=== PATIENT | female | born 1965 | race Caucasian/White ===

== ENCOUNTER 2019-04-27 07:54 | Outpatient (CLI) | payer OTHER, SELFPAY ==
--- NOTE | ~2019-04-27 | MM_ITS ---
EXAMINATION: MM screening [facility] BI w wilber HISTORY: Screening mammogram TECHNIQUE: Craniocaudal and mediolateral oblique 3-D tomosynthesis images were obtained and synthetic 2-D images were generated. CAD analysis was submitted and interpreted. COMPARISON: Comparison to multiple prior studies sequentially, with oldest reviewed study dated 03/04. BREAST PARENCHYMAL COMPOSITION: There are scattered areas of fibroglandular density. FINDINGS: There is no evidence of suspicious mass, calcification, or architectural distortion to sugg est malignancy in either breast. There has been no suspicious interval change. IMPRESSION: 1. No mammographic evidence of malignancy. 2. Recommend routine screening mammography in one year. BI-RADS Category 1: Negative Reviewed, dictated and finalized at location A.
== END 2019-04-27 07:55 | disposition home or self-care (01) ==
PROVIDERS: PCP Family Medicine Adolescent Medicine; Visit Provider Family Medicine Adolescent Medicine
DX: Z12.31 Encounter for screening mammogram for malignant neoplasm of breast (principal)
CPT/HCPCS: 77063; 77067

== ENCOUNTER 2020-04-28 07:32 | Outpatient (CLI) | payer OTHER, SELFPAY ==
--- NOTE | ~2020-04-28 | MM_ITS ---
EXAMINATION: MM screening [facility] w wil[facility] HISTORY: Screening TECHNIQUE: Craniocaudal and mediolateral oblique 3-D tomosynthesis images were obtained and synthetic 2-D images were generated. CAD analysis was submitted and interpreted. COMPARISON: Comparison to multiple prior studies sequentially, with oldest reviewed study dated 03/11. BREAST PARENCHYMAL COMPOSITION: There are scattered areas of fibroglandular density. FINDINGS: There is no evidence of suspicious mass, calcification, or architectural distortion to sugg est malignancy in either breast. There has been no suspicious interval change. IMPRESSION: 1. No mammographic evidence of malignancy. 2. Recommend routine screening mammography in one year. BI-RADS Category 1: Negative Reviewed, dictated and finalized at location A.
== END 2020-04-28 07:33 | disposition home or self-care (01) ==
LOC: ANHIMG 07:35
PROVIDERS: PCP Family Medicine Adolescent Medicine; Visit Provider Family Medicine Adolescent Medicine
DX: Z12.31 Encounter for screening mammogram for malignant neoplasm of breast (principal)
CPT/HCPCS: 77063; 77067

== ENCOUNTER 2021-01-13 09:45 | Emergency (ER) | payer OTHER, SELFPAY ==
[2021-01-13 09:59] VITALS: BP 147/107; PULSE 95; RESP 16; TEMP 38.3; O2SAT 98
--- NOTE | 2021-01-13 10:24 | ED.URI ---
HPI - URI/Sore Throat General Chief Complaint: Upper Respiratory Infection Stated Complaint: chills/body aches Time Seen by Provider: 01/13/21 10:25 Source: patient Mode of arrival: ambulatory Limitations: no limitations History of Present Illness HPI Narrative: Sonja Adams is a 55-year-old female with no prior medical history who comes to [facility] with complaints of body aches chills and fever last night of 103 she states that her back is hurting and that she has had a slight cough. She has not had Covid vaccine, she has not had a flu vaccine, she does not smoke, she does not drink. Took Tylenol still has back pain Related Data Home Medications Medication Instructions Recorded Confirmed Varophen (diclofenac) 01/13/21 Allergies Allergy/AdvReac Type Severity Reaction Status Date / Time No Known Allergies Allergy NONE Verified 03/03/19 10:31 Review of Systems Review of Systems: CONSTITUTIONAL: Has fever, chills, sweats. EYES: Denies visual changes, redness, discharge. ENT: Denies rhinorrhea, has congestion, sore throat, otalgia. CARDIOVASCULAR: Denies chest pain, palpitations, edema. RESPIRATORY: Denies dyspnea, wheezing, slight cough GASTROINTESTINAL: Denies abdominal pain, nausea, vomiting, diarrhea. GENITOURINARY: Denies dysuria, hematuria, abnormal discharge SKIN: Denies rash or itching. NEUROLOGIC: Denies numbness, or focal weakness. PSYCHIATRIC: Denies anxiety or depression. Complaining of back pain and mild PMFSH Past Medical History Medical History No acute medical problems Family History Family History Mother Diabetes mellitus Social History Social History Smoking status: Never smoker Substance use: never Gender identity (if verbalized by the patient): Female Comments At time of signature, I agree with nursing past medical, surgical, social and family history. There is no relevant family history pertinent to the presenting complaint. Blood pressure elevated here today which patient believes is due to her being ill and will follow up with her primary care physician Exam Narrative: GENERAL: This is a well-nourished, well-developed patient, in moderate distress. HEAD: normocephalic, atraumatic. EYES: Sclera clear/white. Vision is grossly intact. EARS: External ears normal. Hearing grossly intact. NOSE: External nose normal without nasal discharge, nares with redness, has rhinorrhea. THROAT: Mucous membranes moist, posterior pharynx erythema NECK: Neck supple, non-tender CARDIOVASCULAR: Tachycardic rate and rhythm without murmurs, gallops, or rubs. RESPIRATORY: Coarse to auscultation. Breath sounds equal bilaterally. Mild wheezes, rales, or rhonchi. GASTROINTESTINAL: Abdomen soft, SKIN: warm, intact with no suspicious lesions or rash, good texture and turgor. NEURO: awake, alert, and oriented to person, place and time. There were no obvious focal neurologic abnormalities. Steady gait EXTREMITIES: Normal range of motion. BACK: Nontender without deformity Course Course Emergency Course: Pubic patient here with with fever body aches chills started yesterday Flu test was negative-given Toradol IM Started on ibuprofen 800, muscle relaxant, decongestant Vital Signs Vital signs: Vital Signs Temperature 100.9 F H 01/13/21 09:59 Pulse Rate 95 01/13/21 09:59 Respiratory Rate 16 01/13/21 09:59 Blood Pressure 147/107 H 01/13/21 09:59 Pulse Oximetry 98 01/13/21 09:59 Temperature 100.9 F H 01/13/21 09:59 Pulse Rate 95 01/13/21 09:59 Respiratory Rate 16 01/13/21 09:59 Blood Pressure 147/107 H 01/13/21 09:59 Pulse Oximetry 98 01/13/21 09:59 MDM - URI/Sore Throat Differential Diagnosis Differential diagnosis: Likely upper respiratory infection, sinusitis, viral infection, influenza, pharyn
--- NOTE | 2021-01-13 11:03 | PC.NURSE ---
[address] covid pcr order faxed.
--- NOTE | 2021-01-13 18:47 | PC.NURSE ---
order was canceled for toradol by security guard supervisor.
== END 2021-01-13 10:52 | disposition home or self-care (01) ==
PROVIDERS: Emergency Provider Nurse Practitioner; PCP Family Medicine Adolescent Medicine
DX: J06.9 Acute upper respiratory infection, unspecified (principal)
CPT/HCPCS: 87804; 99213; G0463

== ENCOUNTER → 2021-01-15 08:32 | Outpatient (CLI) | payer OTHER, SELFPAY ==
[2021-01-15 19:12] LABS: SARS-CoV-2 RNA PCR Positive
== END ==
PROVIDERS: PCP Family Medicine Adolescent Medicine; Visit Provider Nurse Practitioner
DX: U07.1 COVID-19 (principal)
CPT/HCPCS: C9803; U0003; U0005

== ENCOUNTER 2021-02-16 09:17 | Emergency (ER) | payer OTHER, SELFPAY ==
--- NOTE | 2021-02-16 09:18 | ED.LOWEXIN ---
HPI - Extremity Injury (Lower) General Chief Complaint: Extremity Injury, Lower Stated Complaint: left knee pain Time Seen by Provider: 02/16/21 09:32 Source: patient, RN notes reviewed and old records reviewed Mode of arrival: ambulatory Limitations: no limitations History of Present Illness HPI Narrative: 55-year-old female presents to the [facility] with complaints of left knee pain. Patient has a history of arthritis in her knees. States knee pain became worse yesterday. States that Dr. Santos did gel injections approximately 1 week ago Has taken Tylenol and her diclofenac tablet. Related Data Home Medications Medication Instructions Recorded Confirmed diclofenac sodium 25 mg PO BID 02/16/21 02/16/21 Allergies Allergy/AdvReac Type Severity Reaction Status Date / Time No Known Allergies Allergy NONE Verified 02/16/21 09:40 Review of Systems Review of Systems: All systems reviewed & are unremarkable except as noted in HPI and below Constitutional: Constitutional: Reports no additional constitutional complaints Eyes: Eyes: Reports no additional eye complaints ENT: Reports system reviewed and no additional complaints, except as documented Cardiovascular: Cardiovascular: Reports no additional cardiovascular complaints Respiratory: Respiratory: Reports no additional respiratory complaints Gastrointestinal: Gastrointestinal: Reports no additional gastrointestinal complaints Musculoskeletal: Musculoskeletal: Reports as per HPI, Reports arthralgias (Left knee) and Reports joint swelling (Left knee) Integumentary/Breasts: Skin/Breast: Reports system reviewed and no additional complaints, except as docu Neurologic: Reports system reviewed and no additional complaints, except as documented Psychiatric: Psychiatric: Reports no additional psychiatric complaints Allergic/Immunologic: Allergic/Immunologic: Reports no additional allergic/immunologic complaints [facility] Past Medical History Medical History (Updated 02/16/21 @ 09:47 by Georgie Campuzano) No acute medical problems Osteoarthritis, knee Surgical History Surgical History (Updated 02/16/21 @ 09:19 by Georgie Campuzano) No significant past surgical history Family History Family History Mother Diabetes mellitus Social History Social History Smoking status: Never smoker Substance use: never Gender identity (if verbalized by the patient): Female Comments At the time of my signature, I reviewed and agree with the nursing past medical, surgical, social, and family history. There is no relevant family history pertinent to the patient complaint. Exam Const: General: healthy appearing, no acute distress and alert Nutritional Appearance: well nourished Orientation/consciousness: patient oriented x3 Limitations: no limitations HENMT: Head: normal to inspection Eyes: Pupils: Equal, round and reactive pupils present Neck: Neck: normal visual inspection, no lymphadenopathy and no meningeal signs Chest: Chest palpation & inspection: normal inspection of the chest Resp: Effort & Inspection: normal respiratory effort Auscultation: clear to auscultation bilaterally Cardio: Rate: regular rate Rhythm: regular rhythm Back/Spine/Pelvis: Back: no CVA tenderness Skin: General skin exam: normal color Rashes: no rashes Wounds: no wounds Neuro: General: patient oriented x3, moves all extremities, no meningeal signs and no focal motor deficits Speech: normal speech Gait exam (Neuro): Normal gait present Extrem: General: full ROM, capillary refill normal and normal exam except as noted Left lower extremity: normal capillary refill and knee (No erythema or signs of infection) Details: tenderness Location: of the tibial tuberosity and of the medial joint line and swelling (Generalized) Psych: Appearance: grossly normal and well kempt Mental Status
[2021-02-16 09:20] VITALS: BP 154/97; PULSE 100; RESP 17; TEMP 37.2; O2SAT 100
== END 2021-02-16 09:50 | disposition home or self-care (01) ==
PROVIDERS: Emergency Provider Nurse Practitioner; PCP Family Medicine Adolescent Medicine
DX: M25.462 Effusion, left knee (principal); M17.12 Unilateral primary osteoarthritis, left knee
CPT/HCPCS: 99213; G0463

== ENCOUNTER 2021-05-25 08:36 | Outpatient (CLI) | payer OTHER, SELFPAY ==
--- NOTE | ~2021-05-25 | MM_ITS ---
EXAMINATION: MM screening [facility] BI w wilber HISTORY: Screening TECHNIQUE: Craniocaudal and mediolateral oblique 3-D tomosynthesis images were obtained and synthetic 2-D images were generated. CAD analysis was submitted and interpreted. COMPARISON: Comparison to multiple prior studies sequentially, with oldest reviewed study dated 10/2017. BREAST PARENCHYMAL COMPOSITION: There are scattered areas of fibroglandular density. FINDINGS: There is no evidence of suspicious mass, calcification, or architectural distortion to sugg est malignancy in either breast. There has been no suspicious interval change. IMPRESSION: 1. No mammographic evidence of malignancy. 2. Recommend routine screening mammography in one year. BI-RADS Category 1: Negative Reviewed, dictated and finalized at location A.
== END 2021-05-25 08:37 | disposition home or self-care (01) ==
LOC: ANHIMG 08:37
PROVIDERS: PCP Family Medicine Adolescent Medicine; Visit Provider Family Medicine Adolescent Medicine
DX: Z12.31 Encounter for screening mammogram for malignant neoplasm of breast (principal)
CPT/HCPCS: 77063; 77067

== ENCOUNTER 2021-07-27 08:04 | Outpatient (CLI) | payer OTHER, SELFPAY ==
[2021-07-27 08:45] LABS: Hematocrit 44.1 % (37.0-47.0); Hemoglobin 14.6 g/dL (12.0-15.0); Immature Platelet Fraction Pct 8.8 % (0.9-11.2); Mean Corpuscular HGB Conc 33.1 g/dl (32-36); Mean Corpuscular Hemoglobin 31.2 pg (26-34); Mean Corpuscular Volume 94.2 fl (80-100); Mean Platelet Volume 11.6 fl (7.4-10.4); Platelet Count Result 148 k/mm3 (150-375); Red Blood Count 4.68 M/mm3 (4.2-5.4); Red Cell Distribution Width 12.3 % (11.5-14.5); White Blood Count 4.5 K/mm3 (4.5-10.0)
[2021-07-27 08:53] LABS: Alanine Aminotransferase 40 U/L (6-35); Albumin Level 4.3 g/dL (3.5-5.1); Alkaline Phosphatase 76 U/L (38-126); Anion Gap 7 mmol/L (8-16); Aspartate Amino Transferase 27 U/L (14-36); Bilirubin,Total 0.7 mg/dL (0.2-1.3); Blood Urea Nitrogen 23 mg/dL (7-17); Carbon Dioxide 25 mmol/L (22-30); Chloride 108 mmol/L (98-107); Cholesterol 228 mg/dL (0-200); Estimated Glomerular Filt Rate > 60; Glucose 88 mg/dL (65-110); HDL Direct 45 mg/dL; Potassium 4.1 mmol/L (3.4-5.0); Sodium 140 mmol/L (137-145); Triglycerides 134 mg/dL (<150)
[2021-07-27 09:04] LABS: LDL Cholesterol Direct 123 mg/dL
== END 2021-07-27 08:05 | disposition home or self-care (01) ==
LOC: ANHLAB 08:06
PROVIDERS: PCP Family Medicine Adolescent Medicine; Visit Provider Physician Assistant
DX: M79.645 Pain in left finger(s) (principal); R53.83 Other fatigue; Z13.220 Encounter for screening for lipoid disorders
CPT/HCPCS: 36415; 80053; 80061; 84443; 84550; 85027; 85055

== ENCOUNTER 2021-09-07 05:00 | Emergency (ER) | payer OTHER, SELFPAY ==
--- NOTE | ~2021-09-07 | CT_ITS ---
EXAMINATION: CT abdomen pelvis wo con DATE: 09/07/2021 06:05 INDICATION: Right flank pain. TECHNIQUE: Computed tomography (CT) of the abdomen and pelvis was performed without intravenous contr ast. Automated exposure control and iterative reconstruction technique were employed. The dose-length product was 1127.45 mGy-cm. COMPARISON: 10/21/05 FINDINGS: Lung bases are clear. Heart size is normal. No pericardial or pleural effusion. Diffuse hepatic steat osis with adjacent focal fat and focal fatty sparing along the gallbladder fossa. Gallbladder, spleen , pancreas and right adrenal gland are normal. 2.6 cm low-attenuation left adrenal adenoma. Bilateral nephrolithiasis with 3 mm stone in an upper pole calyx of the left kidney and 1 mm stones in the mid and lower calyces of the right kidney. There is a 2-3 mm stone at the right ureterovesicular junctio n without hydronephrosis or hydroureter. 8 mm left renal cyst. Multiple diverticula predominantly navin ng the descending and sigmoid colon without adjacent inflammatory stranding to suggest diverticulitis . Small bowel and appendix are normal. The uterus is not identified and has likely been surgically re sected. Decompressed bladder and bilateral adnexa are normal. No free intraperitoneal gas or fluid. N o pathologically enlarged abdominal or pelvic lymphadenopathy. Minimal scattered degenerative skeleta l changes. IMPRESSION: 1. Bilateral nephrolithiasis with 2-3 mm nonobstructing stone at the right ureterovesicular junction. Reviewed, dictated and finalized at location A. IMPRESSION: 1. Bilateral nephrolithiasis with 2-3 mm nonobstructing stone at the right uret erovesicular junction.
[2021-09-07 05:05] VITALS: BP 168/107; PULSE 70; RESP 18; TEMP 36.4; O2SAT 98
[2021-09-07 05:30] LABS: Basophils Absolute Auto 0.1 K/mm3 (0.0-0.1); Basophils Percent Auto 0.9 % (0.2-1.2); Eosinophils Absolute Auto 0.1 K/mm3 (0-0.3); Hematocrit 45.1 % (37.0-47.0); Hemoglobin 14.7 g/dL (12.0-15.0); Immature Granulocyte Absolute 0.01 K/mm3 (0.00-0.031); Immature Granulocyte Percent A 0.2 % (0-0.5); Immature Platelet Fraction Pct 10.3 % (0.9-11.2); Lymphocytes Absolute Auto 1.92 K/mm3 (0.9-3.2); Lymphocytes Percent Auto 34.8 % (18.3-44.2); Mean Corpuscular HGB Conc 32.6 g/dl (32-36); Mean Corpuscular Hemoglobin 30.6 pg (26-34); Mean Platelet Volume 11.9 fl (7.4-10.4); Monocytes Absolute Auto 0.5 K/mm3 (0.1-0.6); Monocytes Percent Auto 8.3 % (2.6-8.5); Neutrophils Percent Auto 53.8 % (45.5-73.1); Platelet Count Result 148 k/mm3 (150-375); Red Cell Distribution Width 12.6 % (11.5-14.5); White Blood Count 5.5 K/mm3 (4.5-10.0)
--- NOTE | 2021-09-07 05:32 | PC.NURSE ---
Pt states she is unable to urinate at this time
[2021-09-07] MEDS: MORPHINE SULFATE (*CRX) 4 MG/ML INJ IV PUSH (05:34)
[2021-09-07] MEDS: ONDANSETRON INJ 4 MG/2 ML VIAL IV PUSH (05:34)
[2021-09-07 05:47] LABS: Alanine Aminotransferase 34 U/L (6-35); Albumin Level 4.4 g/dL (3.5-5.1); Alkaline Phosphatase 75 U/L (38-126); Anion Gap 9 mmol/L (8-16); Aspartate Amino Transferase 26 U/L (14-36); Bilirubin,Total 0.5 mg/dL (0.2-1.3); Blood Urea Nitrogen 21 mg/dL (7-17); Calcium 9.1 mg/dL (8.4-10.2); Carbon Dioxide 26 mmol/L (22-30); Chloride 109 mmol/L (98-107); Estimated CRCL calculation 93 ml/min; Estimated Glomerular Filt Rate > 60; Glucose 97 mg/dL (65-110); Potassium 4.2 mmol/L (3.4-5.0); Sodium 144 mmol/L (137-145)
[2021-09-07 05:55] LABS: Appearance Urine Clear (Clear); Bilirubin Urine Negative (Negative); Blood Urine 3+ (Negative); Color Urine Yellow (Yellow); Glucose Urine UA Negative (Negative); Ketones Urine Negative (Negative); Leukocyte Esterase Ur Trace LEU/UL (Negative); Nitrate Urine Negative (Negative); Protein Urine Trace mg/dL (Negative); Specific Grav Ur 1.025 (1.001-1.035); Urobilinogen Urine 0.2 mg/dL (<2.0)
[2021-09-07 06:08] LABS: Mucus Urine Few /lpf; RBC Urine >75 /hpf (0-2); Squamous Epithelial Cell Urine Occasional /hpf (Few); WBC Urine 0-3 /hpf
[2021-09-07 06:09] LABS: Add Urine Microscopic? YES
--- NOTE | 2021-09-07 06:27 | ED.FEMALEGU ---
HPI - Female Genitourinary General Chief complaint: Urogenital-Female Stated complaint: right flank pain Time Seen by Provider: 09/07/21 05:28 History of Present Illness HPI Narrative: 55-year-old female presenting with right flank pain, she had had some right flank pain for the last 2 days but last night she had sudden severe pain in her right flank that woke her out of sleep, she states it feels like her kidney stone, she states she has generally been able to pass it on her own but this was hurting more than usual, states that she has been dribbling and denies any burning with urination. Does not feel like her usual UTI. Related Data Allergies Allergy/AdvReac Type Severity Reaction Status Date / Time No Known Allergies Allergy NONE Verified 09/07/21 05:32 Review of Systems Review of Systems: CONST: No fever. HEENT: No sore throat C/V: No chest pain RESP: No cough GI: Minimal nausea and abdominal pain : Increased frequency and dribbling M/S: Right flank pain SKIN: No rash. NEURO: [No headache or focal numbness or weakness] PSYCH: [No depression] [facility] Past Medical History Medical History (Updated 09/07/21 @ 07:51 by Georgina Alamo MD) History of torn meniscus of left knee Nephrolithiasis Osteoarthritis, knee Surgical History Surgical History History of partial hysterectomy Family History Family History Mother Diabetes mellitus Social History Social History Smoking status: Never smoker Second hand tobacco smoke exposure: No Alcohol intake: current Alcohol use details: Socially Substance use: never Substance use type: does not use Gender identity (if verbalized by the patient): Female Spiritual care concerns: No Agree to blood products: Yes Exam Narrative: EXAMINATION OF ORGAN SYSTEMS/BODY AREAS: Constitutional: Vital signs per nursing GENERAL: Appears quite uncomfortable in bed HEAD: Normal with no signs of head trauma. EYES: EOMI, conjunctiva normal ENT: Hearing grossly intact LUNGS: Nonlabored breathing. HEART: [Regular rate and rhythm] ABD: [Soft], no abdominal tenderness, there is right CVA tenderness EXT: Normal range of motion SKIN: [No rashes or lesions.] NEURO: [Alert and oriented x 3. No gross focal sensory or strength deficits.] PSYCH: Normal affect Course Vital Signs Vital signs: Vital Signs Temperature 97.6 F 09/07/21 05:05 Pulse Rate 70 09/07/21 05:05 Respiratory Rate 18 09/07/21 05:05 Blood Pressure 168/107 H 09/07/21 05:05 Pulse Oximetry 98 09/07/21 05:05 Oxygen Delivery Room Air 09/07/21 05:05 Temperature 97.6 F 09/07/21 05:05 Pulse Rate 63 09/07/21 07:13 Respiratory Rate 18 09/07/21 05:05 Blood Pressure 166/100 H 09/07/21 07:13 Pulse Oximetry 100 09/07/21 07:13 Oxygen Delivery Room Air 09/07/21 05:05 MDM - Female Genitourinary MDM Narrative Medical decision making narrative: ED COURSE AND MEDICAL DECISION MAKIN-year-old female presenting to the emergency department for acute flank pain, symptoms are concerning for likely renal colic versus pyelonephritis. Urinalysis is ordered. [morphine 4mg, Zofran 4mg] are ordered. CT scan of the abdomen/pelvis is ordered. Labs are remarkable for: RBC in urine without signs of UTI CT scan of the abdomen/pelvis is reviewed by myself and interpreted by radiology: 2mm UVJ stone On reevaluation, the patient much more comfortable and able to void. Would like to go home. Patient is strongly advised to return to the emergency department for any increasing pain not improving with medications, persistent nausea vomiting, fevers or chills or for any other concerns. Patient is comfortable with this plan and was discharged in fair condition. Procedures: Pulse oximetry interpretation - not hypoxic. Review of medical records. Lab
[2021-09-07 07:13] VITALS: BP 166/100; PULSE 63; O2SAT 100
[2021-09-07 08:07] VITALS: RESP 16; O2SAT 97
== END 2021-09-07 08:09 | disposition home or self-care (01) ==
PROVIDERS: Emergency Provider Emergency Medicine; PCP Family Medicine Adolescent Medicine
DX: N20.2 Calculus of kidney with calculus of ureter (principal); M17.10 Unilateral primary osteoarthritis, unspecified knee; Z87.442 Personal history of urinary calculi; Z90.711 Acquired absence of uterus with remaining cervical stump
CPT/HCPCS: 36415; 74176; 80053; 81001; 85025; 85055; 96374; 96375; 99284; J2270; J2405

== ENCOUNTER 2021-10-03 17:20 | Emergency (ER) | payer OTHER, SELFPAY ==
--- NOTE | ~2021-10-03 | CT_ITS ---
EXAMINATION: CT abdomen pelvis wo con DATE: 10/03/2021 18:28 INDICATION: kidney stone?? TECHNIQUE: Computed tomography (CT) of the abdomen and pelvis was performed without intravenous contr ast. Automated exposure control and iterative reconstruction technique were employed. The dose-length product was 871.71 mGy-cm. COMPARISON: 09/07/2021. FINDINGS: Lower thorax: Hiatal hernia. Liver: Normal. Biliary/Gallbladder: No bile duct dilation. Pancreas: No mass or duct dilation. Spleen: Normal. Adrenals:Left adrenal adenoma. Kidneys: Mild left hydronephrosis. Left lower pole cyst. Punctate right nonobstructive calculi. No thornton spicious renal mass. GI tract: No small or large bowel dilation. Normal appendix. Diverticulosis without diverticulitis. Mesentery/Peritoneum: No ascites, mass, or free air. Retroperitoneum: No mass. Pelvis: Bladder is decompressed. Absent uterus. 4 mm distal left ureteral stone. Soft Tissues: Soft tissues and body wall unremarkable. Bones: No acute osseous finding. IMPRESSION: 4 mm distal left ureteral stone causing mild obstructive uropathy. Reviewed, dictated and finalized at location K.
[2021-10-03 17:27] VITALS: BP 188/96; PULSE 77; RESP 20; TEMP 36.5; O2SAT 100
[2021-10-03 17:40] LABS: Appearance Urine Clear (Clear); Bilirubin Urine Negative (Negative); Blood Urine 2+ (Negative); Color Urine Yellow (Yellow); Glucose Urine UA Negative (Negative); Ketones Urine Negative (Negative); Leukocyte Esterase Ur Trace LEU/UL (Negative); Nitrate Urine Negative (Negative); Protein Urine Negative (Negative); Urobilinogen Urine 0.2 mg/dL (<2.0); pH Urine 8.5 (5.0-9.0)
[2021-10-03 17:41] LABS: Basophils Absolute Auto 0.1 K/mm3 (0.0-0.1); Basophils Percent Auto 0.6 % (0.2-1.2); Eosinophils Absolute Auto 0.1 K/mm3 (0-0.3); Eosinophils Percent Auto 1.1 % (0-4.4); Hematocrit 44.4 % (37.0-47.0); Hemoglobin 14.8 g/dL (12.0-15.0); Immature Granulocyte Absolute 0.01 K/mm3 (0.00-0.031); Immature Granulocyte Percent A 0.1 % (0-0.5); Immature Platelet Fraction Pct 9.4 % (0.9-11.2); Lymphocytes Absolute Auto 2.56 K/mm3 (0.9-3.2); Lymphocytes Percent Auto 30.8 % (18.3-44.2); Mean Corpuscular HGB Conc 33.3 g/dl (32-36); Mean Corpuscular Hemoglobin 31.8 pg (26-34); Mean Corpuscular Volume 95.3 fl (80-100); Mean Platelet Volume 11.6 fl (7.4-10.4); Monocytes Absolute Auto 0.5 K/mm3 (0.1-0.6); Monocytes Percent Auto 6.3 % (2.6-8.5); Neutrophils Absolute Auto 5.1 K/mm3 (1.3-6.7); Neutrophils Percent Auto 61.1 % (45.5-73.1); Platelet Count Result 148 k/mm3 (150-375); Red Blood Count 4.66 M/mm3 (4.2-5.4); Red Cell Distribution Width 12.8 % (11.5-14.5); White Blood Count 8.3 K/mm3 (4.5-10.0)
[2021-10-03 17:50] LABS: Alanine Aminotransferase 37 U/L (6-35); Albumin Level 4.8 g/dL (3.5-5.1); Alkaline Phosphatase 80 U/L (38-126); Anion Gap 13 mmol/L (8-16); Aspartate Amino Transferase 26 U/L (14-36); Bilirubin,Total 0.5 mg/dL (0.2-1.3); Blood Urea Nitrogen 22 mg/dL (7-17); Calcium 9.8 mg/dL (8.4-10.2); Carbon Dioxide 24 mmol/L (22-30); Chloride 105 mmol/L (98-107); Estimated CRCL calculation 83 ml/min; Estimated Glomerular Filt Rate > 60; Glucose 88 mg/dL (65-110); Potassium 4.1 mmol/L (3.4-5.0); Sodium 142 mmol/L (137-145)
[2021-10-03 17:55] LABS: Mucus Urine Rare /lpf; RBC Urine 21-50 /hpf (0-2); Squamous Epithelial Cell Urine Occasional /hpf (Few)
[2021-10-03 17:56] LABS: Add Urine Microscopic? YES
[2021-10-03 18:42] VITALS: BP 232/89; PULSE 68; RESP 16; O2SAT 100
--- NOTE | 2021-10-03 19:07 | ED.FEMALEGU ---
HPI - Female Genitourinary General Chief complaint: Urogenital-Female Stated complaint: Kidney Stone Time Seen by Provider: 10/03/21 19:06 Source: patient Mode of arrival: ambulatory Limitations: no limitations History of Present Illness HPI Narrative: 55 years old white female presents with left flank pain that started 1-1/2-hour prior to arrival to the emergency room associated with nausea. History of kidney stone. She denies any fever, chills, or vomiting. Related Data Allergies Allergy/AdvReac Type Severity Reaction Status Date / Time No Known Allergies Allergy NONE Verified 10/03/21 19:14 Review of Systems Review of Systems: All systems reviewed & are unremarkable except as noted in HPI and below PMFSH Past Medical History Medical History History of torn meniscus of left knee Nephrolithiasis Osteoarthritis, knee Surgical History Surgical History History of partial hysterectomy Family History Family History Mother Diabetes mellitus Social History Social History Smoking status: Never smoker Second hand tobacco smoke exposure: No Alcohol intake: current Alcohol use details: Socially Substance use: never Substance use type: does not use Gender identity (if verbalized by the patient): Female Spiritual care concerns: No Agree to blood products: Yes Exam Narrative: General appearance: Well-developed, well-nourished Skin: Normal color Head: Normocephalic, nontraumatic Eyes: Clear conjunctiva ENT: Oropharynx normal, ears normal, nose normal Neck: Supple, nontender Chest and respiratory: Airway patent, no respiratory distress, no accessory muscle use Heart: Regular rate/rhythm Abdomen: Soft, mild tenderness left flank, no organomegaly, quiet bowel sounds Vascular: Normal peripheral pulses, normal capillary refill. 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, no gross motor deficit Course Vital Signs Vital signs: Vital Signs Temperature 36.5 C 10/03/21 17:27 Pulse Rate 77 10/03/21 17:27 Respiratory Rate 20 10/03/21 17:27 Blood Pressure 188/96 H 10/03/21 17:27 Pulse Oximetry 100 10/03/21 17:27 Oxygen Delivery Room Air 10/03/21 17:27 Temperature 36.5 C 10/03/21 17:27 Pulse Rate 68 10/03/21 18:42 Respiratory Rate 16 10/03/21 18:42 Blood Pressure 232/89 H 10/03/21 18:42 Pulse Oximetry 100 10/03/21 18:42 Oxygen Delivery Room Air 10/03/21 17:27 MDM - Female Genitourinary Differential Diagnosis Differential diagnosis: Likely urinary tract infection and other (Kidney stone) Lab Data Result diagrams: 10/03/21 17:33 10/03/21 17:33 Labs: Lab Results 10/03/21 10/03/21 10/03/21 Range/Units 17:33 17:33 17:33 WBC 8.3 (4.5-10.0) K/mm3 RBC 4.66 (4.2-5.4) M/mm3 Hgb 14.8 (12.0-15.0) g/dL Hct 44.4 (37.0-47.0) % MCV 95.3 (80-100) fl MCH 31.8 (26-34) pg MCHC 33.3 (32-36) g/dl RDW 12.8 (11.5-14.5) % Plt Count 148 L (150-375) k/mm3 MPV 11.6 H (7.4-10.4) fl Immature Gran % (Auto) 0.1 (0-0.5) % Neut % (Auto) 61.1 (45.5-73.1) % Lymph % (Auto) 30.8 (18.3-44.2) % [place] % (Auto) 6.3 (2.6-8.5) % Eos % (Auto) 1.1 (0-4.4) % Baso % (Auto) 0.6 (0.2-1.2) % Lymph # (Auto) 2.56 (0.9-3.2) K/mm3 [place] # (Auto) 0.5 (0.1-0.6) K/mm3 Eos # (Auto) 0.1 (0-0.3) K/mm3 Baso # (Auto) 0.1 (0.0-
[2021-10-03] MEDS: HYDROmorphone HCL INJ (*CRX) 1 MG/ML SYR 0.5 MG IV PUSH (19:44)
[2021-10-03] MEDS: ONDANSETRON INJ 4 MG/2 ML VIAL IV PUSH (19:44)
[2021-10-03] MEDS: TAMSULOSIN HCL 0.4 MG CAPSULE PO (19:44)
[2021-10-03] MEDS: SODIUM CHLORIDE 0.9% IV 1,000 ML 999 ML IV CONT (19:44)
[2021-10-03 20:26] VITALS: BP 188/86; PULSE 66; RESP 16; O2SAT 100
== END 2021-10-03 20:27 | disposition home or self-care (01) ==
PROVIDERS: Emergency Provider Emergency Medicine; PCP Family Medicine Adolescent Medicine
DX: N13.9 Obstructive and reflux uropathy, unspecified (principal); N20.1 Calculus of ureter; Z87.442 Personal history of urinary calculi; M17.10 Unilateral primary osteoarthritis, unspecified knee
CPT/HCPCS: 36415; 74176; 80053; 81001; 85025; 85055; 87077; 87086; 87088; 96361; 96374; 96375; 99284; A9270; J1170; J2405; J7030

== ENCOUNTER 2021-10-04 02:21 | Emergency (ER) | payer OTHER, SELFPAY ==
[2021-10-04 02:27] VITALS: BP 171/103; PULSE 76; RESP 18; TEMP 36.5; O2SAT 100
--- NOTE | 2021-10-04 03:00 | ED.GENADULT ---
HPI - General Adult General Chief complaint: Abdominal Pain Stated complaint: kidney stone pain Time Seen by Provider: 10/04/21 02:36 History of Present Illness HPI narrative: This is a 55-year-old female who was diagnosed earlier today with a kidney stone. She was discharged home for trial of outpatient therapy. She was not able to fill her pain medications at the pharmacy was closed. She has taken 1 [place] from a friend which is not providing enough relief. She has not tried Motrin or Tylenol. Patient is looking for pain relief to get her through the night so she can fill her prescriptions in the morning. Related Data Allergies Allergy/AdvReac Type Severity Reaction Status Date / Time No Known Allergies Allergy NONE Verified 10/03/21 19:14 Review of Systems Review of Systems: CONSTITUTIONAL: Denies night sweats. EYES: No eye pain ENT: Denies rhinorrhea CARDIOVASCULAR: Denies palpitations RESPIRATORY: Denies hemoptysis GASTROINTESTINAL: Denies hematemesis GENITOURINARY: Denies hematuria. SKIN: Denies rash MUSCULOSKELETAL: Denies myalgia. NEUROLOGIC: Denies weakness. PSYCHIATRIC: Denies delusions [facility] Past Medical History Medical History History of torn meniscus of left knee Nephrolithiasis Osteoarthritis, knee Surgical History Surgical History History of partial hysterectomy Family History Family History Mother Diabetes mellitus Social History Social History Smoking status: Never smoker Second hand tobacco smoke exposure: No Alcohol intake: current Alcohol use details: Socially Substance use: never Substance use type: does not use Gender identity (if verbalized by the patient): Female Spiritual care concerns: No Agree to blood products: Yes Exam Narrative: APPEARANCE: Patient appears uncomfortable Head atraumatic. EYES: PERRLA/EOMI, NOSE: Normal no drainage NECK: Supple, Trachea midline RESPIRATORY: CTAB, No increased work of breathing. CARDIOVASCULAR: S1S2 appreciated ABDOMINAL: Soft, nontender, nondistended, MUSCULOSKELETAl: No obvious deformities NEURO: Alert. Moving 4/4 extremities SKIN:: Warm, dry. Normal color PSYCHIATRIC: Normal affect Course Vital Signs Vital signs: Vital Signs Temperature 97.7 F 10/04/21 02:27 Pulse Rate 76 10/04/21 02:27 Respiratory Rate 18 10/04/21 02:27 Blood Pressure 171/103 H 10/04/21 02:27 Pulse Oximetry 100 10/04/21 02:27 Oxygen Delivery Room Air 10/04/21 02:27 Temperature 97.7 F 10/04/21 02:27 Pulse Rate 76 10/04/21 02:27 Respiratory Rate 18 10/04/21 02:27 Blood Pressure 171/103 H 10/04/21 02:27 Pulse Oximetry 100 10/04/21 02:27 Oxygen Delivery Room Air 10/04/21 02:27 Medical Decision Making MDM Narrative Medical decision making narrative: This a 55-year-old female who was discharged earlier today kidney stones. She was not able to fill her prescriptions at the pharmacy. was given pain meds here in the emergency department. Her pain was controlled. She will be discharged home to get her medications in the morning. Vital Signs Vital Signs: Vital Signs Temperature 97.7 F 10/04/21 02:27 Pulse Rate 76 10/04/21 02:27 Respiratory Rate 18 10/04/21 02:27 Blood Pressure 171/103 H 10/04/21 02:27 Pulse Oximetry 100 10/04/21 02:27 Oxygen Delivery Room Air 10/04/21 02:27 Temperature 97.7 F 10/04/21 02:27 Pulse Rate 76 10/04/21 02:27 Respiratory Rate 18 10/04/21 02:27 Blood Pressure 171/103 H 10/04/21 02:27 Pulse Oximetry 100 10/04/21 02:27 Oxygen Delivery Room Air 10/04/21 02:27 Discharge Plan Discharge Clinical Impression: Kidney stone Patient Disposition: Home, Self-Care Condition: Stable Instructions: Antib
[2021-10-04] MEDS: KETOROLAC 30 MG/ML VIAL (*BKC) IM (03:15)
[2021-10-04] MEDS: HYDROcodone/acetaminophen (*CRX) 5-325 MG TABLET 2 TAB PO (03:16)
== END 2021-10-04 03:50 | disposition home or self-care (01) ==
PROVIDERS: Emergency Provider Emergency Medicine; PCP Family Medicine Adolescent Medicine
DX: N20.0 Calculus of kidney (principal); Z87.442 Personal history of urinary calculi; M17.10 Unilateral primary osteoarthritis, unspecified knee; Z90.711 Acquired absence of uterus with remaining cervical stump
CPT/HCPCS: 96372; 99283; A9270; J1885

== ENCOUNTER 2022-01-22 16:42 | Outpatient (CLI) | payer OTHER, SELFPAY ==
--- NOTE | ~2022-01-22 | XR_ITS ---
Left elbow Technique: AP, oblique, and lateral views were obtained. Clinical History: Pain Findings: No acute fracture or dislocation is seen. Osseous alignment is anatomic. Joint spaces are p reserved. There is no displacement of the fat pads, and no evidence of joint effusion. Probable mild subcutaneous soft tissue edema over the extensor aspect of the proximal forearm. Impression: No osseous or articular abnormality. Probable mild subcutaneous soft tissue edema over the extensor aspect of the proximal forearm. Reviewed, dictated and finalized at location [] GANIC CHEMIST Impression: No osseous or articular abnormality. Probable mild subcutaneous soft tissue edema over the extensor aspect of the pr oximal forearm.
== END 2022-01-22 16:43 | disposition home or self-care (01) ==
LOC: ANHIMG 16:47
PROVIDERS: PCP Family Medicine Adolescent Medicine; Visit Provider Physician Assistant
DX: M25.522 Pain in left elbow (principal)
CPT/HCPCS: 73080

== ENCOUNTER 2022-07-16 18:10 | Emergency (ER) | payer OTHER, SELFPAY ==
[2022-07-16 18:19] VITALS: BP 147/98; PULSE 101; RESP 18; TEMP 36.5; O2SAT 99
--- NOTE | 2022-07-16 18:47 | ED.GENADULT ---
HPI - General Adult General Chief complaint: Extremity Injury, Lower Stated complaint: bleeding to right leg Time Seen by Provider: 07/16/22 18:36 History of Present Illness HPI narrative: 56-year-old female presented to the emergency department for evaluation of a bleeding wound to her right lower leg. Patient states he did have a wound on her leg a few days ago and did scratch at it. Patient states that she was getting out of the shower and pressure with a towel and started bleeding again. Related Data Allergies Allergy/AdvReac Type Severity Reaction Status Date / Time No Known Allergies Allergy NONE Verified 07/16/22 18:38 Review of Systems Review of Systems: All systems reviewed & are unremarkable except as noted in HPI and below PMFSH Past Medical History Medical History History of torn meniscus of left knee Nephrolithiasis Osteoarthritis, knee Surgical History Surgical History History of partial hysterectomy Family History Family History Mother Diabetes mellitus Social History Social History Smoking status: Never smoker Second hand tobacco smoke exposure: No Alcohol intake: current Alcohol use details: Socially Substance use: never Substance use type: does not use Living arrangements: alone Occupation/Education: occupation Gender identity (if verbalized by the patient): Female Spiritual care concerns: No Agree to blood products: Yes Exam Narrative: APPEARANCE: Well appearing, no pain, no distress, well-nourished. HEAD: normocephalic, atraumatic. EYES: PERRLA/EOMI, conjunctivae clear. NOSE: Normal no drainage NECK: Supple. No adenopathy, no masses. RESPIRATORY: Airway patent, respirations nonlabored. Clear to auscultation bilaterally, no rales, rhonchi, wheezing. CARDIOVASCULAR: Regular rate and rhythm without murmurs rubs or gallops. ABDOMINAL: Soft, nontender, nondistended, normal bowel sounds MUSCULOSKELETAL: Moves all extremities. Strength/ROM intact, No edema, No calf tenderness. NEURO: Alert. Cranial nerves II through XII intact. Good gait. Good coordination SKIN: Briskly bleeding punctate wound right lower extremity Course Course Emergency Course: 48-year-old female presented the ED for evaluation of a leg wound. Leg wound was under and directed with lidocaine with epi and sutured with a [id number] suture. Bleeding was controlled. Dressing was applied and patient was encouraged to have close follow-up with her primary care physician in 5 to 7 days to have the sutures removed. All questions concerns were addressed and patient was well-appearing at time of discharge. Vital Signs Vital signs: Vital Signs Temperature 97.7 F 07/16/22 18:19 Pulse Rate 101 H 07/16/22 18:19 Respiratory Rate 18 07/16/22 18:19 Blood Pressure 147/98 H 07/16/22 18:19 Pulse Oximetry 99 07/16/22 18:19 Temperature 97.7 F 07/16/22 18:19 Pulse Rate 80 07/16/22 19:52 Respiratory Rate 16 07/16/22 19:52 Blood Pressure 147/98 H 07/16/22 18:19 Pulse Oximetry 100 07/16/22 19:52 Procedures Laceration Laceration 1: Time: 19:36 Site: lower extremity Side (If applicable): right Size (cm): 0.5 Description: other (Punctate) Local Anesthetic: lidocaine 1% and with epi Amount of anesthesia used (mL): 4 Pre-repair: wound explored ====== Skin Level ====== Size (cm): other (1 [id number] suture) Number of sutures: 1 ====== Subcutaneous Layer ====== ====== Muscle Layer ====== ====== Tendon Layer ====== Medical Decision Making Vital Signs Vital Signs: Vital Signs Temperature 97.7 F 07/16/22 18:19 Pulse Rate 101 H 07/16/22 18:19
--- NOTE | 2022-07-16 19:08 | PC.NURSE ---
Patient report given to DIPTI Lucero. All questions answered and care of patient transferred.
[2022-07-16] MEDS: LIDO 1%/EPINEPHRINE 1:100,000 20 ML VIAL 10 ML INFILTRATE (19:14)
[2022-07-16] MEDS: CELLULOSE OXIDIZED 2 x 3 INCH 1 PKT XX (19:47)
[2022-07-16 19:52] VITALS: PULSE 80; RESP 16; O2SAT 100
== END 2022-07-16 19:53 | disposition home or self-care (01) ==
PROVIDERS: Emergency Provider Emergency Medicine; PCP Family Medicine Adolescent Medicine
DX: I83.891 Varicose veins of right lower extremity with other complications (principal); M17.9 Osteoarthritis of knee, unspecified; Z87.442 Personal history of urinary calculi
CPT/HCPCS: 12001; 99283

== ENCOUNTER 2022-07-23 08:15 | Outpatient (CLI) | payer OTHER, SELFPAY ==
--- NOTE | ~2022-07-23 | MM_ITS ---
EXAMINATION: MM screening adriana BI w wilber HISTORY: Screening mammogram TECHNIQUE: Craniocaudal and mediolateral oblique 3-D tomosynthesis images were obtained and synthetic 2-D images were generated. CAD analysis was submitted and interpreted. COMPARISON: May 25, 2021, April 28, 2020, April 27, 2019 bilateral screening mammogram examinations BREAST PARENCHYMAL COMPOSITION: There are scattered areas of fibroglandular density. FINDINGS: There is no evidence of suspicious mass, calcification, or architectural distortion to sugg est malignancy in either breast. There has been no suspicious interval change. IMPRESSION: 1. No mammographic evidence of malignancy. 2. Recommend routine screening mammography in one year. BI-RADS Category 1: Negative Reviewed, dictated and finalized at location A.
== END 2022-07-23 08:16 | disposition home or self-care (01) ==
PROVIDERS: PCP Family Medicine Adolescent Medicine; Visit Provider Family Medicine Adolescent Medicine
DX: Z12.31 Encounter for screening mammogram for malignant neoplasm of breast (principal)
CPT/HCPCS: 77063; 77067

== ENCOUNTER 2022-08-05 08:00 | Outpatient (CLI) | payer OTHER, SELFPAY ==
--- NOTE | 2022-08-05 09:00 | ECG_ITS ---
Measurements Intervals [place] Rate: 65 P: 37 IA: 176 QRS: 12 QRSD: 87 T: 29 QT: 422 QTc: 441 Interpretive Statements SINUS RHYTHM NORMAL ECG NO PREVIOUS ECG AVAILABLE FOR COMPARISON Electronically Signed On 08-05-2022 10:42:05 CDT by Aleks Sharma M.D.
[2022-08-05 10:35] LABS: Basophils Percent Auto 0.8 % (0.2-1.2); Eosinophils Absolute Auto 0.1 K/mm3 (0-0.3); Eosinophils Percent Auto 2.2 % (0-4.4); Hematocrit 44.9 % (37.0-47.0); Hemoglobin 14.1 g/dL (12.0-15.0); Immature Granulocyte Absolute 0.01 K/mm3 (0.00-0.031); Immature Granulocyte Percent A 0.2 % (0-0.5); Lymphocytes Absolute Auto 1.65 K/mm3 (0.9-3.2); Lymphocytes Percent Auto 33.7 % (18.3-44.2); Mean Corpuscular HGB Conc 31.4 g/dl (32-36); Mean Corpuscular Hemoglobin 31.4 pg (26-34); Monocytes Absolute Auto 0.4 K/mm3 (0.1-0.6); Monocytes Percent Auto 8.4 % (2.6-8.5); Neutrophils Absolute Auto 2.7 K/mm3 (1.3-6.7); Neutrophils Percent Auto 54.7 % (45.5-73.1); Platelet Count Result 144 k/mm3 (150-375); Red Blood Count 4.49 M/mm3 (4.2-5.4); Red Cell Distribution Width 12.2 % (11.5-14.5); White Blood Count 4.9 K/mm3 (4.5-10.0)
[2022-08-05 10:45] LABS: Albumin Level 4.4 g/dL (3.5-5.1); Estimated Glomerular Filt Rate > 60; Glucose 82 mg/dL (65-110)
[2022-08-05 11:05] LABS: Hemoglobin A1C 4.9 % (<5.7)
[2022-08-05 11:27] LABS: Urine Cotinine NEGATIVE
== END 2022-08-05 08:01 | disposition home or self-care (01) ==
LOC: ANHSURGERY 08:04
PROVIDERS: PCP Family Medicine Adolescent Medicine; Visit Provider Orthopaedic Surgery
DX: M17.11 Unilateral primary osteoarthritis, right knee (principal); Z01.818 Encounter for other preprocedural examination
CPT/HCPCS: 80307; 82040; 82565; 82947; 83036; 85025; 87081; 93005

== ENCOUNTER 2022-08-21 00:38 | Day surgery (SDC) | payer OTHER, SELFPAY ==
[2022-08-05 08:26] VITALS: BMI 38.2
--- NOTE | 2022-08-05 08:35 | PC.NURSE ---
Report to the Outpatient Waiting Room, entrance under the green pavilion located off [facility], at time _0600 on date _08/21/22 . Planned Procedure Time: ___30 . Time changes happen often and if your time is changed the preop area will call you the afternoon before. - You and your visitor will be asked to self-screen and do not enter if you have any COVID symptoms. - A mask is optional within the hospital at this time. Patients may have clear liquids (water, carbonated beverages, clear teas, apple juice) until 3 hours prior to surgery with a maximum of 20 ounces. - No food from midnight until time of surgery - Infants may have breast milk until 4 hours before surgery, infant formula 6 hours prior to surgery. - Children will be allowed to drink immediately following surgery. If applicable, please bring a bottle or sippy cup to assist with drinking. Juice, water, soda, and popsicles are readily available. For infants on formula, please bring formula the day of surgery. Pacifiers are allowed. Take the following medications with a SIP of water the morning of surgery: ___NONE DO NOT STOP ANY OF YOUR OTHER PRESCRIPTION MEDICATIONS PRIOR TO SURGERY ?EXCEPT THE FOLLOWING Medications to discontinue per physician ___DICLOFENAC PER DR FLOR TOTAL JOINT CLASS August AT 10 AM CLASSROOM 2&3 Please no make-up, nail czech, hairspray, perfume, deodorant, or body powder the day of surgery. No jewelry (including any body piercings) or valuables the day of surgery, leave them at home. Please take a shower or bath the night before, or the morning of, surgery with an antibacterial soap. Wear comfortable, loose fitting clothing. Children are encouraged to wear pajamas. - Jewelry must be removed prior to entering the operating room. Rings and piercings that are not removed may be cut off. - The hospital will not accept responsibility for valuables. - Please leave all valuables, including medications, at home the day of surgery. If you are going home after surgery, a licensed port cdl a driver must drive you home. - NO public transportation without another adult if you receive anesthesia. - We recommend that an adult stay with you for 24 hours following discharge. - We also recommend that you do not drive, make important decision, drink alcoholic beverages, or take any drugs that were not prescribed by your health care provider for at least 24 hours after your discharge time. For Pediatric surgeries, we recommend two adults accompany the child home. Follow any additional instructions given to you from your surgeon. If you or anyone in your household have experienced Covid symptoms in the past week, please notify your surgeon or the nurse liaison at the phone number below for possible testing. VERBAL AND WRITTEN instructions given to ___PATIENT and asked if any additional questions and then verbalized understanding. Patient advised to call surgeon office or pre surgery nurse liaison [phone] if any additional questions.
[2022-08-05 09:13] VITALS: BP 152/95; PULSE 75; RESP 18; TEMP 37.1; O2SAT 98
--- NOTE | 2022-08-14 13:24 | PM.IMHP ---
H&P: HPI History of Present Illness Date/Time: 08/14/22 13:24 Chief Complaint: The patient is a 56-year-old female who sees Dr. Santos regarding her right knee. The patient has chronic ongoing history of pain localized to the right knee this is due to primary osteoarthritis. She has aching pain worse with activity some early by rest has trouble standing or walking for long periods cannot twist turn squat kneel go up and downstairs well. She has failed conservative measures including cortisone therapy and anti-inflammatories over time. X-rays do demonstrate advanced primary osteoarthritis in the right knee joint. She actually has it in both knees she would like to proceed with a right total knee arthroplasty and has discussed risks benefits limitations and alternatives of surgery in great detail with Dr. Santos. Review of Systems Review of Systems: Ten point review of systems otherwise negative [facility] Past Medical History Medical History History of torn meniscus of left knee Nephrolithiasis Osteoarthritis, knee Surgical History Surgical History History of partial hysterectomy Family History Family History Mother Diabetes mellitus Social History Social History Smoking status: Never smoker Second hand tobacco smoke exposure: No Additional smoking assessment comments: DENIES ANY FORM OF TOBACCO USE Alcohol intake: current Alcohol use details: Socially Substance use: never Substance use type: does not use Living arrangements: alone Occupation/Education: occupation Gender identity (if verbalized by the patient): Female Spiritual care concerns: No Agree to blood products: Yes Meds Home Medications and Allergies Home Medications Medication Instructions Recorded Confirmed Type diclofenac sodium 75 mg See Rx Instructions .Route 03/20/22 08/05/22 Rx tablet,delayed release .COMPLEX #60 tabs atorvastatin 10 mg tablet 10 mg PO DAILY #90 tabs 07/22/22 08/05/22 Rx baclofen 10 mg tablet 10 mg PO DAILY PRN muscle spasm 07/22/22 08/05/22 Rx #30 tabs montelukast 10 mg tablet 10 mg PO DAILY 07/22/22 08/05/22 History acetaminophen 650 mg 1,300 mg PO Q12H PRN Pain 08/05/22 08/05/22 History tablet,extended release omeprazole 20 mg capsule,delayed 20 mg PO PRN PRN Heartburn 08/05/22 08/05/22 History release Allergies Allergy/AdvReac Type Severity Reaction Status Date / Time No Known Allergies Allergy NONE Verified 08/05/22 08:11 Exam Narrative: on exam the patient is noted to be 5 ft 6 in tall 225 lb with a BMI of 36.3. Well-developed well-nourished female no acute distress alert oriented x3. Normal mood and affect. Hearing and vision are intact. Respiratory is good no distress. Pulse regular rate and rhythm. Abdomen benign. Extremities show the patient's right knee to be painful with manipulation range of motion. She has subpatellar crepitation mild effusion and puffiness range of motion shows pain with extremes of motion walks with a limp because of her right knee pain. Patient has [id number] primary osteoarthritis both knees noted on x-ray. Knee joints otherwise stable strength is 5 5 neurovascularly she is intact skin is intact central nervous system within normal limits. Assessment and Plan Assessment and plan (1) Bilateral primary osteoarthritis of knee: Code(s): M17.0 - Bilateral primary osteoarthritis of knee Status: Acute Plan By previous x-ray and exam the patient is noted to have severe primary osteoarthritis of both knee joints. The patient has discussed risks benefits limitations alternatives to surgery detail Dr. Santos she is not ready to proceed with right total knee arthroplasty. The patient is scheduled to undergo surg
--- NOTE | 2022-08-20 14:06 | WPDANESEPPF ---
Anes - Initial Pre Proc Eval Procedure: Operation Date: 08/21/22 07:30 Proposed Procedures p Right Total Knee Arthroplasty - José Manuel Santos MD Date/Time: 08/20/22 14:06 Surgeon: José Manuel Santos MD Pre Op Diagnosis: oa right knee Patient Data Age: 56 Gender: F Height: 1.68 m Weight: 107.6 kg Last Vital Signs Temp 37.1 C 08/05/22 09:13 Pulse 75 08/05/22 09:13 Resp 18 08/05/22 09:13 BP 152/95 H 08/05/22 09:13 Pulse Ox 98 08/05/22 09:13 O2 Del Method Room Air 08/05/22 09:13 Allergies Allergy/AdvReac Type Severity Reaction Status Date / Time No Known Allergies Allergy NONE Verified 08/05/22 08:11 Home Medications Medication Instructions Recorded Confirmed Type diclofenac sodium 75 mg See Rx Instructions .Route 03/20/22 08/05/22 Rx tablet,delayed release .COMPLEX #60 tabs atorvastatin 10 mg tablet 10 mg PO DAILY #90 tabs 07/22/22 08/05/22 Rx baclofen 10 mg tablet 10 mg PO DAILY PRN muscle spasm 07/22/22 08/05/22 Rx #30 tabs montelukast 10 mg tablet 10 mg PO DAILY 07/22/22 08/05/22 History acetaminophen 650 mg 1,300 mg PO Q12H PRN Pain 08/05/22 08/05/22 History tablet,extended release omeprazole 20 mg capsule,delayed 20 mg PO PRN PRN Heartburn 08/05/22 08/05/22 History release ECG: Date of Service: 08/05/22 Procedure(s): CA 12 lead EKG Accession Number(s): [id number] cc: ~ ? Measurements Intervals? [place]? Rate: ? 65 ? P:? 37 PA: ? 176? QRS:? 12 QRSD: ? 87 ? T:? 29 QT: ? 422? QTc:? 441? Interpretive Statements SINUS RHYTHM NORMAL ECG NO PREVIOUS ECG AVAILABLE FOR COMPARISON Electronically Signed On 08-05-2022 10:42:05 CDT by Aleks Sharma M.D. Patient hx anesthesia problems: none Family hx anesthesia problems: none Results Review: All pre-operative results and documents have been reviewed as part of the pre-operative evaluation. [facility] Past Medical History Medical History (Updated 08/20/22 @ 14:07 by Lawrence Collier MD) History of torn meniscus of left knee Hyperlipidemia LDL goal <100 Nephrolithiasis Obesity Osteoarthritis, knee Surgical History Surgical History History of partial hysterectomy Family History Family History Mother Diabetes mellitus Social History Social History Smoking status: Never smoker Second hand tobacco smoke exposure: No Additional smoking assessment comments: DENIES ANY FORM OF TOBACCO USE Alcohol intake: current Alcohol use details: Socially Substance use: never Substance use type: does not use Living arrangements: alone Occupation/Education: occupation Gender identity (if verbalized by the patient): Female Spiritual care concerns: No Agree to blood products: Yes Anes - Eval Final PreProcedure Day of Procedure 08/20/22 14:06 Patient weight: obese Heart: regular rate and rhythm Lungs: clear to auscultation and normal air movement Airway: Mallampati scale class II Neurological: alert and oriented Last oral intake: >/= 8 hours ASA classification: III Emergent: no Anesthetic plan: proceed Anesthesia type and monitoring: general LMA Results Review: All pre-operative results and documents have been reviewed as part of the pre-operative evaluation. Informed Consent: The patient's anesthetic plan and its attendant risks and benefits were discussed with the patient/family/POA. Questions were solicited and answers provided to the satisfaction of the patient/family/POA.
--- NOTE | 2022-08-20 14:07 | WPDANESPNB ---
Anes - Peripheral Nerve Block Date/Time: 08/20/22 14:07 I have discussed with the patient/family/POA the placement of a peripheral nerve block for post-operative pain management, including associated risks, benefits, complications, and side effects. Alternative methods of post-operative analgesia were detailed. Questions were solicited and answers provided to the satisfaction of the patient/family/POA. Time-Out: A pre-procedural Time-Out was completed immediately before starting the procedure and confirmed: Patient Identification, Site, Procedure, Patient Position and the Availability of Requisite Equipment. Clinical Indications: Acute post-operative pain management requested by the operative surgeon. Nerve Block Insertion Note Anes-nerve block: adductor canal Patient position: supine Skin prep: chlorhexidine Needle: 22 gauge, stimulating, insulated echogenic needle. Needle length: 80 mm Technique: ultrasound Technique comment: in plane Injectate: bupivacaine 0.25% with epi 5 mcg/ml (30cc) Observations: tolerated well Complications: none Procedure start time:: 730 Procedure end time:: 73
[2022-08-21] VITALS (16 sets, daily range): BP systolic 112–160; BP diastolic 61–103; PULSE 68–90; RESP 10–20; TEMP 35.8–36.7; O2SAT 95–100
--- NOTE | ~2022-08-21 | XR_ITS ---
EXAMINATION: [id number]_[id number]_CR DATE: 08/21/2022 10:18 INDICATION: Postoperative evaluation following right total knee arthroplasty. TECHNIQUE: Anteroposterior and lateral views of the right knee were obtained. COMPARISON: None. FINDINGS: Right total knee arthroplasty with patellar resurfacing appears well seated and in near anatomic alig nment. No fractures identified. Anterior skin jasmeet and expected postoperative subcutaneous, intra medullary and intra-articular gas. IMPRESSION: 1. Right total knee arthroplasty, negative for postoperative purposes. Reviewed, dictated and finalized at location A.
[2022-08-21] MEDS: ACETAMINOPHEN 500 MG TABLET 1000 MG PO (06:41)
--- NOTE | 2022-08-21 06:53 | WPDHPUPDATE1 ---
History and Physical Update Update Date/Time: 08/21/22 06:53 History and Physical has been reviewed, including an updated exam of the patient. There are NO changes in the patient's condition. Risks, benefits, and alternatives have been discussed and questions answered. Patient agrees to proceed with procedure.
[2022-08-21] MEDS: LACTATED RINGERS 1,000 ML 30 ML IV CONT ×2 (06:58→10:20)
[2022-08-21] MEDS: TRANEXAMIC ACID 1,000MG/ISO100 1,000 MG/100 ML BAG 200 MG IVPB (07:07)
[2022-08-21] MEDS: ceFAZolin 2 GM/D5W 50 ML 2 GM/50 ML BAG IVPB (07:47)
--- NOTE | 2022-08-21 09:24 | W.PM.PROC2 ---
Procedure Note - Detailed Date of Procedure 08/21/22 Pre-op Diagnosis Osteoarthritis right knee Post-op Diagnosis Same Procedure Performed RIGHT total knee arthroplasty Surgeon José Manuel Santos MD Waterworks Chief Engineer Sage Aguillon Anesthesia General Description of Procedure The patient was brought to the operating room #7. General anesthetic was administered. Placed on the operating table and sterilely prepped and draped in usual manner. A longitudinal incision was made. Tourniquet inflated to 300 mmHg for a total of 50 minutes. Dissection carried down to the fascia. Medial parapatellar incision was made and the patella subluxated laterally. Patella cut from 22 to 15 mm and sized for a 37 mm button. The tibia cut perpendicular to the long axis and femur cut in 5 degrees of valgus, taking 12mm off to staighten the knee. 65mm femur trialed. 67mm tibia was felt to fit the best. The soft tissue balanced, hemostasis obtained. All [address], 67mm tibia, 65mm femur, 37 mm patella, and 12 mm poly. Motion was 0-125 degrees with good stablility and flexion and extension. The wound was closed with #2 vicryl, 2-0 Vicryl and jasmeet. Implants [employer] Vangaurd Estimated Blood Loss 200 Drains No Packing No Pathology None sent Complications No immediate complications Condition Stable Disposition PACU
[2022-08-21] MEDS: fentaNYL CITRATE INJ (*CRX) 100 MCG/2 ML VIAL 25 MCG IV PUSH ×8 (10:15→10:29)
--- NOTE | 2022-08-21 10:23 | P.OPB_ITS ---
Procedure Note - Brief Procedure Note - Brief Date of procedure: 08/21/22 Preop diagnosis advanced osteoarthritis right knee Postop diagnosis same status post right total knee arthroplasty Procedure performed: Right total knee arthroplasty Surgeon: Surgeon-José Manuel Santos MD 1st senior agricultural assistant- Sage Aguillon PA-C Description of procedure: Patient was taken the operating room on 08/21/2022 and the room at 7:45 a.m. that point I assisted with positioning the patient on the operating table placement of a tourniquet a sterile prep and drape. Dr. Santos then entered the room and proceed with right total knee arthroplasty throughout the procedure and assisted with hemostasis with suction cautery, wound retraction, positioning of the leg, positioning of the implant and excess cement removal. Dr. Santos completed his portion of the procedure and I then irrigated the wound thoroughly deep to superficial, placed Surgicel powder throughout the wound made sure further hemostasis was obtained with cauterization and then began with closure of the deep layer of the joint capsule with 2. Vicryl, and 2. Quill. I then irrigated the wound once again placed more Surgicel powder cauterized further then closed superficial layers with 2-0 Vicryl 0 Quill and surgical skin jasmeet. I placed a sterile dressing with Xeroform gauze 4 x 4 gauze soft roll and a long Nabeel wrap from the toes to the thigh. The patient was stable for transfer to recovery room in good condition with no intraoperative complications noted. Total blood loss was approximately 200 cc. The I then assisted with transfer the patient from the operating table to the stretcher for transfer to recovery room. The patient is expected to spend the night and to go home tomorrow if in good condition and pain is well controlled. I exited the room at 10:05 a.m.
[2022-08-21] MEDS: HYDROmorphone HCL INJ (*CRX) 1 MG/ML SYR 0.5 MG IV PUSH (10:57)
--- NOTE | 2022-08-21 12:03 | ADMGEN ---
This patient, Sonja Adams, was admitted to 3 [facility] Surg Room 319-01. Patient/family oriented to hospital policies and general routines including ID bracelet, bed and alarms, visiting hours, pain management, procedures, bathroom and other care routines, personal items, smoking policy, room service/diet, and visiting hours. Information on how to activate the Rapid Response Team has been discussed. Patient/Family are encouraged to report perceived risks to care and to ask questions if they do not understand what they are told or what they should do.
[2022-08-21] MEDS: SODIUM CHLORIDE 0.9% IV 1,000 ML 125 ML IV CONT (12:15)
[2022-08-21] MEDS: polyethylene glycoL 3350 17 GM POWD.PACK PO (12:16)
--- NOTE | 2022-08-21 13:13 | PM.IMCN ---
Assessment and Plan Assessment and plan (1) S/P total knee arthroplasty: Code(s): Z96.659 - Presence of unspecified artificial knee joint Status: Acute Assessment and Plan: See operative report from today 08/21/[address] Santos. No complications were noted. The patient was feeling slightly nauseated she was given a 1 time dose of Zofran. Patient's last EKG was 08/05/2022 which shows a QT of 422. Normal QT interval for female is 360-460. If the patient continues to feel nauseated and is requiring anti nausea medicine then the patient will need to placed on a monitor to monitor her QT interval. The patient does not typically wear oxygen but was required to be placed on oxygen 2 L per nasal cannula. She is currently on room air. DVT prophylaxis per Ortho. The patient is currently on Xarelto. Pain management per Ortho. The patient is receiving oxycodone, tramadol, hydrocodone, and cyclobenzaprine as well Celebrex. (2) Hyperlipidemia LDL goal <100: Code(s): E78.5 - Hyperlipidemia, unspecified Status: Acute Assessment and Plan: Continue with Lipitor. (3) Chronic GERD: Code(s): K21.9 - Gastro-esophageal reflux disease without esophagitis Status: Acute Assessment and Plan: Continue with pantoprazole (4) Reactive airway disease: Code(s): J45.909 - Unspecified asthma, uncomplicated Status: Acute Assessment and Plan: The patient takes montelukast and I have added p.r.n. albuterol inhalers well. HPI Data of Consult Consult date: 08/21/22 Requesting Physician: José Manuel Santos MD Primary Care Provider: Greg Vargas MD Consult Narrative Narrative: Sonja Adams is a 56 year old female who has been seeing Dr. Santos for her right knee pain. The patient has chronic ongoing history of pain localized to her right knee which is due to her primary osteoarthritis. The patient has worsening pain with activity. She has trouble standing or walking for long periods of time. The patient cannot twist turn or squat or kneel down to be able to go up and down stairs. She has failed conservative outpatient measures including cortisone therapy and anti-inflammatories over time. Her x-rays demonstrate advanced primary osteoarthritis of the right knee. The patient had a right total knee arthroplasty performed by Dr. Santos today. Please see operative note. Estimated blood loss was 200 cc. No immediate complications were noted. The patient was sitting on the side of the bed when I assessed her. The patient was getting ready to get up with physical therapy. The patient complained of feeling nauseated. She was given IV Zofran x1. The patient initially had oxygen placed but is now removed. The patient does not wear oxygen on a routine basis. Her blood pressure is elevated today at 158/92. The hospitalist group has been asked to consult on the date of service of 08/21/2022. Review of Systems Review of Systems: All systems reviewed & are unremarkable except as noted in HPI and below Constitutional: Constitutional: Reports as per HPI and Reports no additional constitutional complaints Eyes: Eyes: Reports as per HPI and Reports no additional eye complaints ENT: Reports system reviewed and no additional complaints, except as documented and Reports Normal hearing present Cardiovascular: Cardiovascular: Reports no additional cardiovascular complaints Respiratory: Respiratory: Reports no additional respiratory complaints and Reports no additional respiratory complaints Gastrointestinal: Gastrointestinal: Reports as per HPI and Reports no additional gastrointestinal complaints Musculoskeletal: Musculoskeletal: Reports no additional musculoskeletal complaints Integumentary/Breasts: Skin/Breast: Reports system reviewed and no additional complaints, except as docu and Reports as per HPI Neurologic: Reports system reviewed and no additional complaints, except
[2022-08-21] MEDS: HYDROcodone/acetaminophen (*CRX) 7.5-325 MG TABLET 1 TAB PO ×2 (13:14→20:00)
[2022-08-21] MEDS: ONDANSETRON INJ 4 MG/2 ML VIAL IV PUSH (13:44)
--- NOTE | 2022-08-21 16:04 | PCPTNOTE ---
On 08/21/22, the student, CHETNA Olivera, provided care and completed [facility] documentation on this patient. I have reviewed the student's documentation and agree with the findings.
[2022-08-21] MEDS: SENNA/DOCUSATE SODIUM TABLET 2 TAB PO (16:33)
[2022-08-21] MEDS: CELECOXIB 200 MG CAPSULE PO (16:34)
[2022-08-21] MEDS: ceFAZolin 1 GM/NS 50 ML 1 GM/50 ML BAG IVPB (16:36)
[2022-08-21] MEDS: RIVAROXABAN 10 MG TABLET PO (20:02)
[2022-08-22] VITALS: BP 132/65; PULSE 68; RESP 16; TEMP 36.5; O2SAT 95
[2022-08-22] MEDS: ceFAZolin 1 GM/NS 50 ML 1 GM/50 ML BAG IVPB ×2 (00:49→08:24)
[2022-08-22] MEDS: HYDROcodone/acetaminophen (*CRX) 7.5-325 MG TABLET 1 TAB PO ×3 (02:01→14:41)
[2022-08-22 04:00] VITALS: BP 142/72; PULSE 70; RESP 16; TEMP 36.1; O2SAT 99
[2022-08-22 06:34] LABS: Basophils Percent Auto 0.2 % (0.2-1.2); Hematocrit 37.4 % (37.0-47.0); Hemoglobin 11.9 g/dL (12.0-15.0); Immature Granulocyte Absolute 0.04 K/mm3 (0.00-0.031); Immature Granulocyte Percent A 0.4 % (0-0.5); Immature Platelet Fraction Pct 9.8 % (0.9-11.2); Lymphocytes Absolute Auto 1.68 K/mm3 (0.9-3.2); Lymphocytes Percent Auto 15.3 % (18.3-44.2); Mean Corpuscular HGB Conc 31.8 g/dl (32-36); Mean Corpuscular Hemoglobin 31.6 pg (26-34); Mean Corpuscular Volume 99.2 fl (80-100); Mean Platelet Volume 11.6 fl (7.4-10.4); Monocytes Absolute Auto 1.1 K/mm3 (0.1-0.6); Monocytes Percent Auto 10.4 % (2.6-8.5); Neutrophils Absolute Auto 8.1 K/mm3 (1.3-6.7); Neutrophils Percent Auto 73.7 % (45.5-73.1); Platelet Count Result 128 k/mm3 (150-375); Red Blood Count 3.77 M/mm3 (4.2-5.4); Red Cell Distribution Width 12.1 % (11.5-14.5)
[2022-08-22 06:54] LABS: Alanine Aminotransferase 28 U/L (6-35); Albumin Level 3.7 g/dL (3.5-5.1); Alkaline Phosphatase 52 U/L (38-126); Anion Gap 4 mmol/L (8-16); Aspartate Amino Transferase 30 U/L (14-36); Bilirubin,Total 0.4 mg/dL (0.2-1.3); Blood Urea Nitrogen 23 mg/dL (7-17); Calcium 9.2 mg/dL (8.4-10.2); Carbon Dioxide 27 mmol/L (22-30); Chloride 106 mmol/L (98-107); Estimated CRCL calculation 94 ml/min; Estimated Glomerular Filt Rate > 60; Glucose 99 mg/dL (65-110); Potassium 4.2 mmol/L (3.4-5.0); Sodium 137 mmol/L (137-145)
[2022-08-22 08:00] VITALS: PULSE 70; RESP 16; O2SAT 99
[2022-08-22] MEDS: CELECOXIB 200 MG CAPSULE PO (08:22)
[2022-08-22] MEDS: SENNA/DOCUSATE SODIUM TABLET 2 TAB PO (08:22)
[2022-08-22] MEDS: ATORVASTATIN 10 MG TABLET PO (08:22)
[2022-08-22] MEDS: MONTELUKAST SODIUM 10 MG TABLET PO (08:22)
[2022-08-22 09:25] VITALS: BP 138/65; PULSE 73; RESP 18; TEMP 36.3; O2SAT 100
--- NOTE | 2022-08-22 09:36 | PM.IMPN ---
Progress Note: A&P Assessment and Plan (1) S/P total knee arthroplasty: Code(s): Z96.659 - Presence of unspecified artificial knee joint Status: Acute Assessment and Plan: -DVT prophylaxis per Ortho. Xarelto 10 mg PO daily - Pain management per Ortho. The patient is receiving oxycodone, tramadol, hydrocodone, and cyclobenzaprine as well Celebrex. -Bowel regimen with miralax and senna/colace -PT/OT with full weight bearing activity (2) Hyperlipidemia LDL goal <100: Code(s): E78.5 - Hyperlipidemia, unspecified Status: Acute Assessment and Plan: Continue with Lipitor. (3) Chronic GERD: Code(s): K21.9 - Gastro-esophageal reflux disease without esophagitis Status: Acute Assessment and Plan: Continue with pantoprazole (4) Reactive airway disease: Code(s): J45.909 - Unspecified asthma, uncomplicated Status: Acute Assessment and Plan: The patient takes montelukast and I have added p.r.n. albuterol inhalers well. Plan Patient is medically ready for discharge. Agree with plan and care for discharge today. Medicine signed off. Subjective Date/time seen: 08/22/22 09:36 Interval history: HPI taken from chart review Sonja Adams is a 56 year old female who has been seeing Dr. Santos for her right knee pain.? The patient has chronic ongoing history of pain localized to her right knee which is due to her primary osteoarthritis.? The patient has worsening pain with activity.? She has trouble standing or walking for long periods of time.? The patient cannot twist turn or squat or kneel down to be able to go up and down stairs.? She has failed conservative outpatient measures including cortisone therapy and anti-inflammatories over time.? Her x-rays demonstrate advanced primary osteoarthritis of the right knee.? The patient had a right total knee arthroplasty performed by Dr. Santos today.? Please see operative note.? Estimated blood loss was 200 cc.? No immediate complications were noted.? The patient was sitting on the side of the bed when I assessed her.? The patient was getting ready to get up with physical therapy.? The patient complained of feeling nauseated.? She was given IV Zofran x1.? The patient initially had oxygen placed but is now removed.? The patient does not wear oxygen on a routine basis.? Her blood pressure is elevated today at 158/92.? The hospitalist group has been asked to consult on the date of service of 08/21/2022. 08/22: Patient is seen today resting in bed after just working with therapy. She says that she is doing well postoperatively in that her pain is well controlled with her current pain regimen. She feels tired in weak right now but she says that that is just because she is tired from therapy. She denies headache dizziness, chest pain, shortness of breath, fever, chills, nausea, vomiting, as and diarrhea. Her only complaint is some tenderness and intermittent throbbing to her right knee. Her knee is wrapped in Nabeel wrap and elevated with ice. She is tolerating a diet and anticipates going home this afternoon with outpatient therapy. Review of Systems Review of Systems: All systems reviewed & are unremarkable except as noted in HPI and below Exam Narrative: General: well-nourished, well-appearing 56-year-old female, laying in bed, comfortable, NARD Neuro: awake, alert and oriented x4, speech clear, no focal neuro deficits noted HEENMT: normocephalic, atraumatic, EOMI, sclerae anicteric, moist oral mucosa Respiratory: Clear to auscultation bilaterally without crackles, rhonchi or wheezes, nonlabored breathing Cardio: regular rate, regular rhythm with S1-S2 Abdomen: nondistended, normoactive bowel sounds, soft, nontender to palpation Extremities: scant dependent edema to RLE, no erythema, or tenderness to palpation, DP pulses 2+ bilaterally. Tenderness with manipulation. Neurovascularly intact. Skin: no rashes or lesions, warm and
--- NOTE | 2022-08-22 11:25 | PM.DS ---
DS: Admitting Diagnosis Discharge Date August 22, 2022 Admitting Diagnosis admitting diagnosis severe primary primary osteoarthritis right knee discharge diagnosis severe primary osteoarthritis right knee joint status post right total knee arthroplasty DS: Summary Hospital Course Hospital Course: the patient is a 56-year-old female who underwent right total knee arthroplasty performed by Dr. Flor on 08 21 22 the patient was kept overnight for observation and pain control. Postop day 1 the patient was doing quite well in physical therapy pain was well controlled vital signs are stable she is afebrile neurovascularly the patient is intact wound is clean and dry calves are benign. The patient was ambulating independently did well in therapy and was deemed stable for discharge to on August 22, 2022. Discharge instructions include resume home medication, she is in good condition discharge to home on a general diet activity as tolerated weightbearing as tolerated right lower extremity with a walker. She will have outpatient physical therapy for total knee protocol beginning early next week. The patient will keep the wound clean and dry watch for evidence of drainage or infection. She will start Kinta 7.5 mg every 6 hours p.r.n. severe pain and Xarelto 10 mg daily for a total postop course of 2 weeks when this is complete she will go to aspirin 325 mg b.i.d. x1 month for DVT prophylaxis. The patient will follow-up at our office in 2 weeks for staple removal and wound recheck. The patient is instructed to call the office immediately at [phone] for any problems difficulties or questions. The patient voiced understanding and agrees with the above plan. Time Spent with Patient Time attestation: Total time spent providing and/or coordinating discharge services: Exam Narrative: Vital signs stable afebrile neurovascular the patient is intact wound is clean and dry calves are benign. The patient is alert oriented x3. Normal mood and affect. Pain well controlled postop day 1. Tolerating p.o. intake well. Tolerating physical therapy well up ambulating independently with a walker. DS: Data Data Completed and Pending Labs on day of discharge: Labs from last 24 hours 08/22/22 06:15 WBC 11.0 H RBC 3.77 L Hgb 11.9 L Hct 37.4 MCV 99.2 MCH 31.6 MCHC 31.8 L RDW 12.1 Plt Count 128 L MPV 11.6 H Immature Gran % (Auto) 0.4 Neut % (Auto) 73.7 H Lymph % (Auto) 15.3 L [place] % (Auto) 10.4 H Eos % (Auto) 0.0 Baso % (Auto) 0.2 Lymph # (Auto) 1.68 [place] # (Auto) 1.1 H Eos # (Auto) 0.0 Baso # (Auto) 0.0 Abs Immat Gran (auto) 0.04 H Absolute Neuts (auto) 8.1 H Absolute Nucleated RBC 0.0 Nucleated RBC % 0.0 % Immature Plt Fraction 9.8 Sodium 137 Potassium 4.2 Chloride 106 Carbon Dioxide 27 Anion Gap 4 L BUN 23 H Creatinine 0.70 Estim Creat Clear Calc 94 Estimated GFR > 60 Glucose 99 Calcium 9.2 Total Bilirubin 0.4 AST 30 ALT 28 Alkaline Phosphatase 52 Total Protein 7.0 Albumin 3.7 Procedures/Treatments: Right total knee arthroplasty Discharge Plan Discharge Patient Disposition: Home, Self-Care Discharge Instructions: [facility] FLOR M.D [facility], [address] [address] POST-OPERATIVE DISCHARGE INSTRUCTIONS TOTAL KNEE ARTHROPLASTY 1. When resting, lie on back with leg elevated above hear to minimize swelling. Significant swelling could indicate a blood clot and if this occurs call the office (or go to the ER) to have a venous ultrasound. 2. Do exercise 5 times a day. 3. Do not sit with leg down except for meals. 4. Wound Care: Nursing will give additional dressings at discharge. Patient to change dressing at home 1 week from surgery, then maintain until seen in office. 5. May shower with dressing in place. 6. Follow weight bearing status instructions. IMPORTANT: Remember not to sit
[2022-08-22] MEDS: traMADol HCL (*CRX) 50 MG TABLET PO (13:00)
--- NOTE | 2022-08-22 13:59 | WPDANESPN ---
Anes - Prog Note Post-Op Date/Time: 08/22/22 13:59 Vital Signs: Last Vital Signs Temp 36.3 C L 08/22/22 09:25 Pulse 73 08/22/22 09:25 Resp 18 08/22/22 09:25 BP 138/65 08/22/22 09:25 Pulse Ox 100 08/22/22 09:25 O2 Del Method Room Air 08/22/22 08:00 O2 Flow Rate 1 08/21/22 11:59 Pain Score (VAS): 3 I/O: Intake & Output 08/21/22 08/22/22 08/22/22 23:59 07:59 15:59 Intake Total 290 50 170 Balance 290 50 170 Laboratory Tests 08/22/22 06:15 08/22/22 06:15 08/22/22 06:15 WBC 11.0 H RBC 3.77 L Hgb 11.9 L Hct 37.4 MCV 99.2 MCH 31.6 MCHC 31.8 L RDW 12.1 Plt Count 128 L MPV 11.6 H Immature Gran % (Auto) 0.4 Neut % (Auto) 73.7 H Lymph % (Auto) 15.3 L [place] % (Auto) 10.4 H Eos % (Auto) 0.0 Baso % (Auto) 0.2 Lymph # (Auto) 1.68 [place] # (Auto) 1.1 H Eos # (Auto) 0.0 Baso # (Auto) 0.0 Abs Immat Gran (auto) 0.04 H Absolute Neuts (auto) 8.1 H Absolute Nucleated RBC 0.0 Nucleated RBC % 0.0 % Immature Plt Fraction 9.8 Sodium 137 Potassium 4.2 Chloride 106 Carbon Dioxide 27 Anion Gap 4 L BUN 23 H Creatinine 0.70 Estim Creat Clear Calc 94 Estimated GFR > 60 Glucose 99 Calcium 9.2 Total Bilirubin 0.4 AST 30 ALT 28 Alkaline Phosphatase 52 Total Protein 7.0 Albumin 3.7 Patient Feedback: Patient satisfied with anesthetic care.
== END 2022-08-22 15:07 | disposition home or self-care (01) ==
LOC: ANHSURGERY 06:09 → ANH3MEDSUR 11:45
PROVIDERS: Nurse Practitioner; PCP Family Medicine Adolescent Medicine; Visit Provider Orthopaedic Surgery
PROC: (CPT 27447; principal; 2022-08-21 07:30)
DX: M17.11 Unilateral primary osteoarthritis, right knee (principal); G89.18 Other acute postprocedural pain; E78.5 Hyperlipidemia, unspecified; J45.909 Unspecified asthma, uncomplicated; K21.9 Gastro-esophageal reflux disease without esophagitis; E66.01 Morbid (severe) obesity due to excess calories; Z68.41 Body mass index [BMI] 40.0-44.9, adult
CPT/HCPCS: 27447; 64447; 36415; 73560; 80053; 85025; 85055; 86850; 86900; 86901; 97110; 97116; 97161; 97165; 97530; 97535; A9270; C1713; C1776; J0171; J0690; J1170; J1885; J2250; J2270; J2405; J2795; J3010; J7030; J7120

== ENCOUNTER 2022-11-15 12:36 | Outpatient (CLI) | payer OTHER, SELFPAY ==
--- NOTE | ~2022-11-15 | XR_ITS ---
XR knee LT 3V DATE: 11/15/2022 13:10 INDICATION: Chronic left knee pain. No injury. TECHNIQUE: [place] and standing AP and lateral views COMPARISON: 01/29/2019 left knee FINDINGS: There is prominent periarticular spurring at the patellofemoral joint. There is severe loss of joint space at the medial compartment with [id number] and periarticular spu rring. There is osteopenia. No fracture or dislocation, periosteal reaction or bone destruction. Mild suprapatellar knee joint ef fusion is suggested. No chondrocalcinosis or apparent radiopaque interarticular loose body is noted. IMPRESSION: Osteoarthritis, most severe at the medial compartment with [id number] Mild suprapatellar knee joint effusion is suggested Reviewed, dictated and finalized at location B. IMPRESSION: Osteoarthritis, most severe at the medial compartment with bone-on- bone Mild suprapatellar knee joint effusion is suggested
== END 2022-11-15 12:37 | disposition home or self-care (01) ==
PROVIDERS: PCP Family Medicine Adolescent Medicine; Visit Provider Orthopaedic Surgery
DX: M25.462 Effusion, left knee (principal); M17.12 Unilateral primary osteoarthritis, left knee
CPT/HCPCS: 73562

== ENCOUNTER 2023-01-23 11:28 | Outpatient (CLI) | payer OTHER, SELFPAY ==
[2023-01-23 13:00] LABS: Basophils Percent Auto 0.7 % (0.2-1.2); Eosinophils Absolute Auto 0.1 K/mm3 (0-0.3); Eosinophils Percent Auto 1.3 % (0-4.4); Hematocrit 44.3 % (37.0-47.0); Hemoglobin 14.1 g/dL (12.0-15.0); Immature Granulocyte Absolute 0.01 K/mm3 (0.00-0.031); Immature Granulocyte Percent A 0.2 % (0-0.5); Lymphocytes Absolute Auto 1.75 K/mm3 (0.9-3.2); Lymphocytes Percent Auto 31.6 % (18.3-44.2); Mean Corpuscular HGB Conc 31.8 g/dl (32-36); Mean Corpuscular Hemoglobin 29.6 pg (26-34); Mean Corpuscular Volume 92.9 fl (80-100); Mean Platelet Volume 11.2 fl (7.4-10.4); Monocytes Absolute Auto 0.3 K/mm3 (0.1-0.6); Monocytes Percent Auto 5.8 % (2.6-8.5); Neutrophils Absolute Auto 3.4 K/mm3 (1.3-6.7); Neutrophils Percent Auto 60.4 % (45.5-73.1); Platelet Count Result 149 k/mm3 (150-375); Red Blood Count 4.77 M/mm3 (4.2-5.4); Red Cell Distribution Width 13.6 % (11.5-14.5); White Blood Count 5.5 K/mm3 (4.5-10.0)
[2023-01-23 13:15] LABS: Albumin Level 4.5 g/dL (3.5-5.1); Estimated Glomerular Filt Rate > 60; Glucose 89 mg/dL (65-110)
[2023-01-23 13:17] LABS: Urine Cotinine NEGATIVE
[2023-01-23 13:34] LABS: Hemoglobin A1C 5.2 % (<5.7)
== END 2023-01-23 11:29 | disposition home or self-care (01) ==
PROVIDERS: PCP Family Medicine Adolescent Medicine; Visit Provider Orthopaedic Surgery
DX: Z01.818 Encounter for other preprocedural examination (principal); M17.12 Unilateral primary osteoarthritis, left knee
CPT/HCPCS: 80307; 82040; 82565; 82947; 83036; 85025; 86850; 86900; 86901; 87081

== ENCOUNTER 2023-02-04 00:39 | Day surgery (SDC) | payer OTHER, SELFPAY ==
--- NOTE | 2023-01-23 11:35 | PC.NURSE ---
PRE-OP INSTRUCTIONS, PLEASE READ CAREFULLY Report to the Outpatient Waiting Room, entrance under the green pavilion located off [facility], at time _0800_ on date _02/04/23_. Planned Procedure Time: _1000_. PACK A SMALL OVERNIGHT BAG AND LEAVE IN THE CAR ALONG WITH YOUR WALKER Time changes happen often and if your time is changed the preop area will call you the afternoon before. - You and your visitor will be asked to self-screen and do not enter if you have any COVID symptoms. - A mask is optional within the hospital at this time. -VISITING HOURS 8AM-8PM Patients may have clear liquids (water, carbonated beverages, clear teas, apple juice) until 3 hours prior to surgery (0700 AM) with a maximum of 20 ounces. - No food from midnight until time of surgery Take the following medications with a SIP of water the morning of surgery: _TYLENOL IF NEEDED_ DO NOT STOP ANY OF YOUR OTHER PRESCRIPTION MEDICATIONS PRIOR TO SURGERY ?EXCEPT THE FOLLOWING Medications to discontinue per physician NONE , Date to take last dose Please no make-up, nail indonesian, hairspray, perfume, deodorant, or body powder the day of surgery. No jewelry (including any body piercings) or valuables the day of surgery, leave them at home. Please take a shower or bath the night before, or the morning of, surgery with an antibacterial soap. Wear comfortable, loose fitting clothing. - Jewelry must be removed prior to entering the operating room. Rings and piercings that are not removed may be cut off. - The hospital will not accept responsibility for valuables. - Please leave all valuables, including medications, at home the day of surgery. If you are going home after surgery, a licensed wagon driver salesperson must drive you home. - NO public transportation without another adult if you receive anesthesia. - We recommend that an adult stay with you for 24 hours following discharge. - We also recommend that you do not drive, make important decision, drink alcoholic beverages, or take any drugs that were not prescribed by your health care provider for at least 24 hours after your discharge time. Follow any additional instructions given to you from your surgeon. If you or anyone in your household have experienced Covid symptoms in the past week, please notify your surgeon or the nurse liaison at the phone number below for possible testing. Instructions given to _PATIENT_and asked if any additional questions and then verbalized understanding. Patient advised to call surgeon office or pre surgery nurse liaison [phone] if any additional questions.
[2023-01-23 12:08] VITALS: BP 152/90; PULSE 88; RESP 20; TEMP 36.7; O2SAT 100; BMI 39.1
--- NOTE | 2023-01-30 08:24 | PM.IMHP ---
H&P: HPI History of Present Illness Date/Time: 01/30/23 08:24 Chief Complaint: Osteoarthritis left knee. Narrative: Patient has knee pain left. She has znwo-yn-zlfk changes with severe degenerative wear. She has failed conservative treatment to date he would like to proceed with knee replacement surgery. Review of Systems Musculoskeletal: Musculoskeletal: Reports arthralgias and Reports joint swelling PMFSH Past Medical History Medical History Bleeding from varicose veins of right lower extremity Chronic GERD Edema History of torn meniscus of left knee Hyperlipidemia LDL goal <100 Left arm cellulitis Lumbago without sciatica Nephrolithiasis Obesity Osteoarthritis, knee Reactive airway disease Tympanic membrane perforation Visit for suture removal Surgical History Surgical History History of ear surgery Left ear History of partial hysterectomy History of total right knee replacement (08/2022) S/P total knee arthroplasty Right knee per Dr. Santos 08/21/2022 Family History Family History Mother Diabetes mellitus Social History Social History Social History: She has 2 children. She is . She is self employed and has never smoked. 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 Gender identity (if verbalized by the patient): Female Spiritual care concerns: No Agree to blood products: Yes Meds Home Medications and Allergies Home Medications Medication Instructions Recorded Confirmed Type atorvastatin 10 mg tablet 10 mg PO DAILY #90 tabs 07/22/22 01/23/23 Rx acetaminophen 650 mg 1,300 mg PO Q12H PRN Pain 08/05/22 01/23/23 History tablet,extended release omeprazole 20 mg capsule,delayed 20 mg PO PRN PRN Heartburn #90 caps 09/30/22 01/23/23 Rx release tramadol 50 mg tablet 50 mg PO Q6H PRN pain #30 tabs 01/23/23 01/23/23 Rx rivaroxaban 10 mg tablet (Xarelto) 10 mg PO DAILY PE prophylaxis s/p 01/29/23 Rx joint replacement surgery #14 tabs Allergies Allergy/AdvReac Type Severity Reaction Status Date / Time No Known Allergies Allergy NONE Verified 01/23/23 12:05 Exam Narrative: On exam the patient has motion knee from about 5 to 110? she has the varus deformity grinding crepitus and pain with manipulation. She walks with antalgic gait. Neurologically she can wiggle her toes grossly intact. Eyes: General: appearance normal, both eyes and all related structures Neck: Neck: supple Resp: Effort & Inspection: normal respiratory effort Cardio: Rate: regular rate Rhythm: regular rhythm Radiology Reports: Comments: Patient: Sonja Adams : 1965 MR#: [id number] Age/Sex: 56 / F Loc: [facility]? ? ADM Date: 11/15/22Attending Dr: José Manuel Santos M.D. Ordering Physician: José Manuel Santos MD Date of Service: 11/15/22 Procedure(s): XR knee LT 3V Accession Number(s): [id number] cc: José Manuel Santos MD; Greg Vargas MD~ XR knee LT 3V DATE: 11/15/2022 13:10 INDICATION: Chronic left knee pain. No injury.? TECHNIQUE: [place] and standing AP and lateral views? COMPARISON: 01/29/2019 left knee? FINDINGS: There is prominent periarticular spurring at the patellofemoral joint. There is severe loss of joint space at the medial compartment with [id number] and periarticular spurring. There is osteo
[2023-02-04] VITALS (17 sets, daily range): BP systolic 120–180; BP diastolic 67–99; PULSE 66–88; RESP 12–20; TEMP 36–37.3; O2SAT 94–100
--- NOTE | ~2023-02-04 | XR_ITS ---
EXAMINATION: [id number] DATE: 02/04/2023 13:18 INDICATION: Left knee arthroplasty. Postop. TECHNIQUE: 2 views of left knee were obtained. COMPARISON: Left knee radiographs 11/15/2022 FINDINGS: There is a total left knee arthroplasty with patellar resurfacing in near-anatomic alignmen t. No fracture. There is gas in the knee joint and soft tissues, consistent with recent surgery. Ante rior skin jasmeet are noted. IMPRESSION: 1. Total left knee arthroplasty in near-anatomic alignment. Reviewed, dictated and finalized at location E. ACY DIRECTOR
--- NOTE | 2023-02-04 06:51 | WPDHPUPDATE1 ---
History and Physical Update Update Date/Time: 02/04/23 06:51 History and Physical has been reviewed, including an updated exam of the patient. There are NO changes in the patient's condition. Risks, benefits, and alternatives have been discussed and questions answered. Patient agrees to proceed with procedure.
[2023-02-04] MEDS: ACETAMINOPHEN 500 MG TABLET 1000 MG PO (08:08)
[2023-02-04] MEDS: VANCOMYCIN 1,500 MG/NS 500 ML BAG 250 MG IVPB (08:25)
--- NOTE | 2023-02-04 08:37 | WPDANESEPPF ---
Anes - Initial Pre Proc Eval Procedure: Operation Date: 02/04/23 10:00 Proposed Procedures p Left Total Knee Arthroplasty - José Manuel Santos MD Date/Time: 02/04/23 08:37 Surgeon: José Manuel Santos MD Pre Op Diagnosis: O A Left Knee Patient Data Age: 57 Gender: F Height: 1.68 m Weight: 109.9 kg Last Vital Signs Temp 37.3 C 02/04/23 08:15 Pulse 75 02/04/23 08:15 Resp 18 02/04/23 08:15 BP 172/98 H 02/04/23 08:15 Pulse Ox 100 02/04/23 08:15 O2 Del Method Room Air 02/04/23 08:15 Allergies Allergy/AdvReac Type Severity Reaction Status Date / Time No Known Allergies Allergy NONE Verified 02/04/23 08:06 Home Medications Medication Instructions Recorded Confirmed Type acetaminophen 650 mg 1,300 mg PO Q12H PRN Pain 08/05/22 02/04/23 History tablet,extended release omeprazole 20 mg capsule,delayed 20 mg PO PRN PRN Heartburn #90 caps 09/30/22 02/04/23 Rx release tramadol 50 mg tablet 50 mg PO Q6H PRN pain #30 tabs 01/23/23 02/04/23 Rx rivaroxaban 10 mg tablet (Xarelto) 10 mg PO DAILY PE prophylaxis s/p 01/29/23 Rx joint replacement surgery #14 tabs Patient hx anesthesia problems: none Family hx anesthesia problems: none Results Review: All pre-operative results and documents have been reviewed as part of the pre-operative evaluation. FORMERLY [facility], [facility] Past Medical History Medical History Bleeding from varicose veins of right lower extremity Chronic GERD Edema History of torn meniscus of left knee Hyperlipidemia LDL goal <100 Left arm cellulitis Lumbago without sciatica Nephrolithiasis Obesity Osteoarthritis, knee Reactive airway disease Tympanic membrane perforation Visit for suture removal Surgical History Surgical History History of ear surgery Left ear History of partial hysterectomy History of total right knee replacement (08/2022) S/P total knee arthroplasty Right knee per Dr. Santos 08/21/2022 Family History Family History Mother Diabetes mellitus Social History Social History Social History: She has 2 children. She is . She is self employed and has never smoked. 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 Informed Consent: The patient's anesthetic plan and its attendant risks and benefits were discussed with the patient/family/POA. Questions were solicited and answers provided to the satisfaction of the patient/family/POA.
[2023-02-04] MEDS: LACTATED RINGERS 1,000 ML 30 ML IV CONT ×2 (08:45→13:04)
--- NOTE | 2023-02-04 09:27 | WPDANESPNB ---
Anes - Peripheral Nerve Block Date/Time: 02/04/23 09:27 I have discussed with the patient/family/POA the placement of a peripheral nerve block for post-operative pain management, including associated risks, benefits, complications, and side effects. Alternative methods of post-operative analgesia were detailed. Questions were solicited and answers provided to the satisfaction of the patient/family/POA. Time-Out: A pre-procedural Time-Out was completed immediately before starting the procedure and confirmed: Patient Identification, Site, Procedure, Patient Position and the Availability of Requisite Equipment. Clinical Indications: Acute post-operative pain management requested by the operative surgeon. Nerve Block Insertion Note Anes-nerve block: adductor canal left Patient position: supine Skin prep: chlorhexidine Needle: 22 gauge, stimulating, insulated echogenic needle. Needle length: 80 mm Technique: ultrasound Injectate: bupivacaine 0.5% with epi 5 mcg/ml (30cc - no epi) Observations: tolerated well Complications: none Procedure start time:: 1034 Procedure end time:: 1037
[2023-02-04] MEDS: TRANEXAMIC ACID 1,000MG/ISO100 1,000 MG/100 ML BAG 200 MG IVPB (09:29)
[2023-02-04] MEDS: ceFAZolin 2 GM/D5W 50 ML 2 GM/50 ML BAG IVPB ×2 (10:50→21:03)
[2023-02-04] MEDS: GENTAMICIN BONE CEMENT REFOBACIN 1 EACH TOPICAL (11:27)
--- NOTE | 2023-02-04 12:33 | W.PM.PROC2 ---
Procedure Note - Detailed Date of Procedure 02/04/23 Pre-op Diagnosis Osteoarthritis Left Knee Post-op Diagnosis Same Procedure Performed Left Total Knee Surgeon José Manuel Santos MD Anesthesia General Indications Pain and Arthritis Description of Procedure The patient was brought to the operating room #7. General anesthetic was administered. Placed on the operating table and sterilely prepped and draped in usual manner. A longitudinal incision was made. Tourniquet inflated to 300 mmHg for a total of 53 minutes. Dissection carried down to the fascia. Medial parapatellar incision was made and the patella subluxated laterally. Patella cut from 26 to 16 mm and sized for a 34 mm button. The tibia cut perpendicular to the long axis and femur cut in 5 degrees of valgus, a 65 femur trialed. 67 tibia was felt to fit the best. The soft tissue balanced, hemostasis obtained. All [address], 67 tibia, 65 femur, 34 mm patella, and 14AS mm poly. Motion was 0-125 degrees with good stability in both flexion and extension. The wound was closed with #2 Vicryl, 2-0 Vicryl and jasmeet. A 2 millimeters extra bone was taken off the femur because of a flexion contracture that the patient had. The case was made particularly difficult because of her obesity particularly about her knee. [employer] Estimated Blood Loss 200 Drains No Packing No Pathology None sent Complications No immediate complications Condition Stable Disposition PACU [facility] Billing Surgery - Charge Forward: Surgery Billing (TOTAL KNEE 23680)
[2023-02-04] MEDS: fentaNYL CITRATE INJ (*CRX) 100 MCG/2 ML VIAL 25 MCG IV PUSH ×8 (13:10→14:33)
--- NOTE | 2023-02-04 15:16 | ADMGEN ---
This patient, Sonja Adams, was admitted to Medical Room 251-01. Patient/family oriented to hospital policies and general routines including ID bracelet, bed and alarms, visiting hours, pain management, procedures, bathroom and other care routines, personal items, smoking policy, room service/diet, and visiting hours. Information on how to activate the Rapid Response Team has been discussed. Patient/Family are encouraged to report perceived risks to care and to ask questions if they do not understand what they are told or what they should do.
[2023-02-04] MEDS: RIVAROXABAN 10 MG TABLET PO (17:16)
[2023-02-04] MEDS: CELECOXIB 200 MG CAPSULE PO (17:16)
[2023-02-04] MEDS: SENNA/DOCUSATE SODIUM TABLET 2 TAB PO (17:16)
[2023-02-04] MEDS: HYDROcodone/acetaminophen (*CRX) 7.5-325 MG TABLET 1 TAB PO ×2 (17:17→23:09)
[2023-02-04] MEDS: FAMOTIDINE 20 MG TABLET PO (21:03)
--- NOTE | 2023-02-04 23:57 | WPDCN ---
Assessment and Plan Assessment and plan (1) Arthritis of left knee: Code(s): M17.12 - Unilateral primary osteoarthritis, left knee Status: Acute Assessment and Plan: Postoperative day 0 status post left total knee arthroplasty. Wound care, pain control, and DVT prophylaxis deferred to Dr. Santos. Check baseline labs in a.m. (2) Gastroesophageal reflux disease: Code(s): K21.9 - Gastro-esophageal reflux disease without esophagitis Status: Acute Assessment and Plan: Pantoprazole p.o. available p.r.n. (3) Hyperlipidemia: Code(s): E78.5 - Hyperlipidemia, unspecified Status: Acute Assessment and Plan: No longer on medication as of summer 2022 due to muscle aches. Plan Thank you for allowing us to participate in this patient's care. Please do not hesitate to contact us with any questions. HPI Data of Consult Date/Time: 02/04/23 23:00 Requesting Physician: José Manuel Santos MD Consult Narrative Reason for consult: Medical management. Narrative: This is a 57-year-old female with osteoarthritis, hypercholesterolemia, and GERD whom the hospitalist service has been consulted for medical management postoperatively. She has had longstanding pain in her left knee which is not been amenable to conservative outpatient treatment and she elected for replacement today. Surgery was performed under general anesthesia with no immediate complications documented an estimated blood loss of 200 mL. Postoperatively she has manageable discomfort. She has not been up with therapy as of yet. She denies fever, chills, sweats, chest pain, shortness a breath, nausea, and vomiting. She also denies paresthesias, skin color, and temperature changes distal to the surgical site. She lives home alone but her daughter will be around to help out on discharge. Regarding her medical history, she was on medication for hypercholesterolemia but she was told to stop taking that in summer 2022 after she started to complain of muscle aches and pains.. She has occasional heartburn for which she will take p.r.n. omeprazole. She has history of kidney stones but no recent issues. No history of venous thromboembolism, cardiac or pulmonary disease. Review of Systems Review of Systems: Twelve systems were reviewed and are negative except for as per HPI. FORMERLY [facility] Past Medical History Medical History (Updated 02/05/23 @ 00:42 by Joselyn Beaulieu PA-C) Gastroesophageal reflux disease Hyperlipidemia Nephrolithiasis Obesity Osteoarthritis, knee Reactive airway disease Surgical History Surgical History (Updated 02/05/23 @ 00:41 by Joselyn Beaulieu PA-C) History of ear surgery Left ear History of partial hysterectomy History of total left knee replacement (01/2023) History of total right knee replacement (08/2022) Family History Family History Mother Diabetes mellitus Social History Social History (Updated 02/05/23 @ 01:17 by Joselyn Beaulieu PA-C) Social History: Surrogate medical decision maker: Lilli Lindsey, daughter. Code status: Full code. Smoking status: Never smoker Second hand tobacco smoke exposure: No Additional smoking assessment comments: PT DENIES ALL FORMS OF TOBACCO USE Alcohol intake: never Alcohol use details: rarely Substance use: never Substance use type: does not use Do You Feel Safe in your Home?: Yes Lack of Transportation: No Lack of Food: Never True Current Housing: I Have Housing Concerned About Future Housing: No Difficulty Paying Gas/Electric Bills: No Difficulty Paying for Meds: No Currently Unemployed: No Education: High School Diploma/GED Difficulty w/ Childcare or Family Care: No Living arrangements: alone Additional living arrangements comments: Lives alone in [place]. . Has 2 children. Occupation/Education: occupation Additional occu
[2023-02-05] MEDS: ceFAZolin 2 GM/D5W 50 ML 2 GM/50 ML BAG IVPB ×2 (04:25→11:50)
[2023-02-05 04:47] VITALS: BP 112/61; PULSE 75; RESP 20; TEMP 36; O2SAT 98
[2023-02-05] MEDS: HYDROcodone/acetaminophen (*CRX) 5-325 MG TABLET 1 TAB PO (05:08)
[2023-02-05 05:38] LABS: Basophils Percent Auto 0.2 % (0.2-1.2); Eosinophils Percent Auto 0.2 % (0-4.4); Hematocrit 32.7 % (37.0-47.0); Hemoglobin 10.4 g/dL (12.0-15.0); Immature Granulocyte Absolute 0.02 K/mm3 (0.00-0.031); Immature Granulocyte Percent A 0.2 % (0-0.5); Lymphocytes Absolute Auto 1.59 K/mm3 (0.9-3.2); Lymphocytes Percent Auto 17.8 % (18.3-44.2); Mean Corpuscular HGB Conc 31.8 g/dl (32-36); Mean Corpuscular Hemoglobin 30.1 pg (26-34); Mean Corpuscular Volume 94.5 fl (80-100); Mean Platelet Volume 11.8 fl (7.4-10.4); Monocytes Percent Auto 11.1 % (2.6-8.5); Neutrophils Absolute Auto 6.3 K/mm3 (1.3-6.7); Neutrophils Percent Auto 70.5 % (45.5-73.1); Platelet Count Result 118 k/mm3 (150-375); Red Blood Count 3.46 M/mm3 (4.2-5.4); Red Cell Distribution Width 13.1 % (11.5-14.5)
[2023-02-05 05:48] LABS: Anion Gap 6 mmol/L (8-16); Blood Urea Nitrogen 22 mg/dL (7-17); Calcium 8.1 mg/dL (8.4-10.2); Carbon Dioxide 24 mmol/L (22-30); Chloride 108 mmol/L (98-107); Estimated CRCL calculation 83 ml/min; Estimated Glomerular Filt Rate > 60; Glucose 95 mg/dL (65-110); Potassium 4.2 mmol/L (3.4-5.0); Sodium 138 mmol/L (137-145)
--- NOTE | 2023-02-05 07:07 | PM.PNORT ---
Progress Note: A&P Assessment and Plan (1) History of knee replacement procedure of left knee: Code(s): Z96.652 - Presence of left artificial knee joint Status: Acute Assessment and Plan: Patient underwent total knee arthroplasty left for osteoarthritis. She is doing well postoperatively and be dismissed home today. Dismissed medication [place] and Xarelto. Follow-up 10 to 14 days for sutures out. Subjective Subjective Date/Time Seen: 02/05/23 07:07 Post Op day: 1 Principal diagnosis: Left total knee arthroplasty for osteoarthritis. Interval history: Patient underwent total knee arthroplasty yesterday. Is doing well so far with pain and ambulation. Review of Systems Musculoskeletal: Musculoskeletal: Reports arthralgias and Reports joint swelling Exam Narrative: On exam the dressing is intact. She is wiggling her toes Objective Data Vital Signs Vital Signs: Vital Signs - 24 hr 02/04/23 08:15 02/04/23 08:50 02/04/23 13:04 Temperature 99.1 F 98.5 F Pulse Rate 75 86 Respiratory Rate 18 16 Blood Pressure 172/98 H 155/89 H 165/99 H Pulse Oximetry 100 100 Oxygen Delivery Room Air Simple Face Mask Oxygen Flow Rate 8 02/04/23 13:15 02/04/23 13:30 02/04/23 13:45 Temperature Pulse Rate 66 76 75 Respiratory Rate 12 16 20 Blood Pressure 168/95 H 155/90 H 155/89 H Pulse Oximetry 96 99 100 Oxygen Delivery Room Air Room Air Room Air Oxygen Flow Rate 02/04/23 14:00 02/04/23 14:15 02/04/23 14:30 Temperature Pulse Rate 68 67 72 Respiratory Rate 16 20 18 Blood Pressure 131/81 148/87 H 160/90 H Pulse Oximetry 97 98 94 Oxygen Delivery Room Air Room Air Room Air Oxygen Flow Rate 02/04/23 14:45 02/04/23 15:00 02/04/23 15:25 Temperature 97.8 F Pulse Rate 69 66 75 Respiratory Rate 18 18 18 Blood Pressure 180/80 H 175/80 H 152/94 H Pulse Oximetry 100 96 97 Oxygen Delivery Room Air Room Air Oxygen Flow Rate 02/04/23 15:40 02/04/23 15:59 02/04/23 16:10 Temperature 97.8 F 97.8 F Pulse Rate 73 74 Respiratory Rate 18 18 Blood Pressure 147/86 H 144/82 H Pulse Oximetry 96 98 Oxygen Delivery Room Air Oxygen Flow Rate 02/04/23 17:10 02/04/23 19:58 02/04/23 20:55 Temperature 97.7 F 96.8 F L Pulse Rate 72 88 Respiratory Rate 18 20 Blood Pressure 142/80 H 120/67 Pulse Oximetry 98 97 Oxygen Delivery Room Air Oxygen Flow Rate 02/04/23 23:35 02/05/23 04:47 Temperature 96.8 F L 96.8 F L Pulse Rate 83 75 Respiratory Rate 20 20 Blood Pressure 127/67 112/61 Pulse Oximetry 100 98 Oxygen Delivery Oxygen Flow Rate Intake/Output Intake/Output: Intake & Output 02/02/23 02/03/23 02/04/23 02/05/23 23:59 23:59 23:59 23:59 Intake Total 1440 440 Balance 1440 440 Meds/Results Medications: Active Medications Generic Name Dose Route Start Last Admin Trade Name Freq PRN Reason Stop Dose Admin Hydrocodone Bitart/Acetaminophen 1 tab 02/04/23 15:02 02/04/23 23:09 Hydrocodone/Acetaminophen (*Crx) 7.5-325 Mg Tablet PO 1 tab Q6H PRN Administration Pain Rated 7-10 Hydrocodone Bitart/Acetaminophen 1 tab 02/04/23 15:02 02/05/23 05:08 Hydrocodone/Acetaminophen (*Crx) 5-325 Mg Tablet PO 1 tab Q4H PRN Administration Pain Rated 4-6 Celecoxib 200 mg 02/04/23 17:00 02/04/23 17:16 Celecoxib 200 Mg Capsule PO 200 mg BIDWM LALIT Administration Cyclobenzaprine HCl 10 mg 02/04/23 15:02 Cyclobenzaprine Hcl 10 Mg Tablet PO Q8H PRN Spasms Diphenhydramine HCl 25 mg 02/04/23 15:02 Diphenhydramine Hcl Inj 50 Mg/Ml Vial IV PUSH Q6H PRN Itching Famotidine 20 mg 02/04/23 21:00 02/04/23 21:03 Famotidine 20 Mg Tablet PO 20 mg Q12HR LALIT Administration Cefazolin Sodium 2 gm in 50 mls @ 100 mls/hr 02/04/23 19:00 02/05/23 04:55 Ancef 2 Gm/D5w 50 Ml IVPB 02/05/23 11:29 Infused Q8H LALIT Infusion Naloxone HCl 0.1 mg 02/04/23 15:02 Naloxone Hcl 0
--- NOTE | 2023-02-05 07:09 | PM.DS ---
DS: Admitting Diagnosis Discharge Date 02/04/2023 Admitting Diagnosis Osteoarthritis left knee. DS: Discharge Diagnosis Discharge Diagnosis Plan Total knee arthroplasty left knee for osteoarthritis. DS: Summary Hospital Course Hospital Course: Patient underwent total knee arthroplasty for osteoarthritis of the left knee. She has done well postoperatively and I believe she can be dismissed home today. Status at Discharge Functional status at discharge: uses cane/walker Time Spent with Patient Time attestation: Total time spent providing and/or coordinating discharge services: Exam Narrative: Dressing is intact. Neurologically she wiggles her toes up and down and can not ambulate. DS: Data Data Completed and Pending Labs on day of discharge: Labs from last 24 hours 02/05/23 05:16 WBC 9.0 RBC 3.46 L Hgb 10.4 L D Hct 32.7 L MCV 94.5 MCH 30.1 MCHC 31.8 L RDW 13.1 Plt Count 118 L MPV 11.8 H Immature Gran % (Auto) 0.2 Neut % (Auto) 70.5 Lymph % (Auto) 17.8 L [place] % (Auto) 11.1 H Eos % (Auto) 0.2 Baso % (Auto) 0.2 Lymph # (Auto) 1.59 [place] # (Auto) 1.0 H Eos # (Auto) 0.0 Baso # (Auto) 0.0 Abs Immat Gran (auto) 0.02 Absolute Neuts (auto) 6.3 Absolute Nucleated RBC 0.0 Nucleated RBC % 0.0 Sodium 138 Potassium 4.2 Chloride 108 H Carbon Dioxide 24 Anion Gap 6 L BUN 22 H Creatinine 0.80 Estim Creat Clear Calc 83 Estimated GFR > 60 Glucose 95 Calcium 8.1 L Magnesium 2.0 Discharge Plan Discharge Patient Disposition: Home, Self-Care Discharge Instructions: José Manuel Santos MD [address] [address] POST-OPERATIVE DISCHARGE INSTRUCTIONS TOTAL KNEE ARTHROPLASTY 1. When resting, do not rest in the chair.When resting, lie on your back, with back flat on the couch or bed, with leg elevated above heart to minimize swelling. You may put a pillow under your head. . Significant swelling could indicate a blood clot and if this occurs call the office (or go to the ER) to have a venous ultrasound. Therefore, do not rest in a chair. 2. At least five times a day spend several minutes stretching your knee into flexion while sitting in the chair and also stretching your knee out straight The abilities to bend your knee fulling and straighten your knee fully are two most important knee functions to focus on during your recovery. 3. It is ok to sit in chair to eat, use the toilet and receive a guest and to do your stretching exercises, but, sitting in a chair will cause your leg to swell. Therefore, avoid additional time sitting in the chair. and don't rest in the chair. 4. Wound Care: Nursing will give you an additional Mepilex dressing at the time of discharge. Patient to remove the dressing and apply a new Mepilex dressing at home 7 days after surgery and leave the dressing on until seen in office. 5. May shower with a Mepilex dressing in place.The water will run off the dressing. 6. Unless you are told otherwise, you may put full weight on your operated leg. Use a walker for balance and practice walking as normally as you can, ideally for a few minutes every hour while you are awake. 7. I would advise against putting ice packs on your knee incision. Ice constricts blood flow which can impar healing of the knee incision. IMPORTANT: Remember not to sit in the chair for more than 30 minutes at a time. As a rule, during the first 14 days after surgery, only sit in the chair to work on the chair knee bending stretch exercise, for meals or for use of the restroom. Sitting in the chair promotes significant swelling in the knee and leg which will make your knee stiff and more painful and which simulates having a blood clot in the veins of the leg. If this type of significant diffuse swelling occurs, an ultrasound at the hospital will be necessary to rule out a blood clot. Be up walking around with the walker for a few
--- NOTE | 2023-02-05 07:47 | WPDANESPN ---
Anes - Prog Note Post-Op Date/Time: 02/05/23 07:47 Cardiovascular status: normal Respiratory status: normal Airway patency: baseline Mental status: baseline Post-Op hydration status: normal Vital Signs: Last Vital Signs Temp 36.0 C L 02/05/23 04:47 Pulse 75 02/05/23 04:47 Resp 20 02/05/23 04:47 BP 112/61 02/05/23 04:47 Pulse Ox 98 02/05/23 04:47 O2 Del Method Room Air 02/04/23 20:55 O2 Flow Rate 8 02/04/23 13:04 Pain Score (VAS): 04/19 I/O: Intake & Output 02/04/23 02/04/23 02/05/23 15:59 23:59 07:59 Intake Total 1150 290 440 Balance 1150 290 440 Laboratory Tests 02/05/23 05:16 02/05/23 05:16 02/05/23 05:16 WBC 9.0 RBC 3.46 L Hgb 10.4 L D Hct 32.7 L MCV 94.5 MCH 30.1 MCHC 31.8 L RDW 13.1 Plt Count 118 L MPV 11.8 H Immature Gran % (Auto) 0.2 Neut % (Auto) 70.5 Lymph % (Auto) 17.8 L [place] % (Auto) 11.1 H Eos % (Auto) 0.2 Baso % (Auto) 0.2 Lymph # (Auto) 1.59 [place] # (Auto) 1.0 H Eos # (Auto) 0.0 Baso # (Auto) 0.0 Abs Immat Gran (auto) 0.02 Absolute Neuts (auto) 6.3 Absolute Nucleated RBC 0.0 Nucleated RBC % 0.0 Sodium 138 Potassium 4.2 Chloride 108 H Carbon Dioxide 24 Anion Gap 6 L BUN 22 H Creatinine 0.80 Estim Creat Clear Calc 83 Estimated GFR > 60 Glucose 95 Calcium 8.1 L Magnesium 2.0 Post-procedural complaints: none Patient Feedback: Patient satisfied with anesthetic care.
[2023-02-05] MEDS: FAMOTIDINE 20 MG TABLET PO (08:36)
[2023-02-05] MEDS: CELECOXIB 200 MG CAPSULE PO (08:36)
[2023-02-05] MEDS: SENNA/DOCUSATE SODIUM TABLET 2 TAB PO (08:37)
[2023-02-05] MEDS: HYDROcodone/acetaminophen (*CRX) 7.5-325 MG TABLET 1 TAB PO (08:37)
[2023-02-05] MEDS: polyethylene glycoL 3350 17 GM POWD.PACK PO (08:37)
[2023-02-05 09:40] VITALS: BP 139/79; PULSE 81; RESP 16; TEMP 36.2; O2SAT 99
--- NOTE | 2023-02-05 10:55 | PCOTNOTE ---
Patient declined Occupational therapy on this date. Patient reports having good family support and is aware of how to complete tub transfer safely.
[2023-02-05] MEDS: CYCLOBENZAPRINE HCL 10 MG TABLET PO (12:58)
== END 2023-02-05 13:00 | disposition home or self-care (01) ==
LOC: ANHSURGERY 07:58 → ANH2MED 15:07
PROVIDERS: PCP Family Medicine Adolescent Medicine; Visit Provider Orthopaedic Surgery
PROC: (CPT 27447; principal; 2023-02-04 10:00)
DX: M17.12 Unilateral primary osteoarthritis, left knee (principal); K21.9 Gastro-esophageal reflux disease without esophagitis; E78.5 Hyperlipidemia, unspecified; G89.18 Other acute postprocedural pain; E66.9 Obesity, unspecified; Z68.39 Body mass index [BMI] 39.0-39.9, adult; Z79.891 Long term (current) use of opiate analgesic; Z79.01 Long term (current) use of anticoagulants; Z96.651 Presence of right artificial knee joint
CPT/HCPCS: 64447; 27447; 36415; 73560; 80048; 83735; 85025; 97110; 97161; 97165; A9270; C1713; C1776; J0171; J0690; J1100; J1885; J2250; J2270; J2405; J2704; J2795; J3010; J3370; J7120

== ENCOUNTER 2023-03-25 00:36 | Day surgery (SDC) | payer OTHER, SELFPAY ==
[2023-03-06 08:44] VITALS: BMI 37.7
[2023-03-25 10:56] VITALS: BP 114/101; PULSE 88; RESP 20; TEMP 36.4; BMI 38.8
[2023-03-25] MEDS: LACTATED RINGERS 1,000 ML 150 ML IV CONT (11:07)
--- NOTE | 2023-03-25 12:35 | WPDANESEPPF ---
Anes - Initial Pre Proc Eval Procedure: Operation Date: 03/25/23 13:30 Proposed Procedures p Colonoscopy - Rodriguez Moses MD Date/Time: 03/25/23 12:35 Surgeon: Rodriguez Moses MD Pre Op Diagnosis: hx of colon polyps Patient Data Age: 57 Gender: F Height: 1.68 m Weight: 109.2 kg Last Vital Signs Temp 97.6 F 03/25/23 10:56 Pulse 88 03/25/23 10:56 Resp 20 03/25/23 10:56 BP 114/101 H 03/25/23 10:56 Allergies Allergy/AdvReac Type Severity Reaction Status Date / Time No Known Allergies Allergy NONE Verified 03/25/23 10:51 Home Medications Medication Instructions Recorded Confirmed Type acetaminophen 650 mg 1,300 mg PO Q12H PRN Pain 08/05/22 03/25/23 History tablet,extended release celecoxib 200 mg capsule (Celebrex) 200 mg PO DAILY #30 caps 03/05/23 03/18/23 Rx zolpidem 10 mg tablet (Ambien) 10 mg PO QHS #10 tabs 03/05/23 03/18/23 Rx omeprazole 20 mg capsule,delayed 20 mg PO PRN PRN Heartburn #90 caps 03/18/23 03/18/23 Rx release Patient hx anesthesia problems: none Family hx anesthesia problems: none Results Review: All pre-operative results and documents have been reviewed as part of the pre-operative evaluation. [facility] Past Medical History Medical History Gastroesophageal reflux disease Hyperlipidemia Nephrolithiasis Obesity Osteoarthritis, knee Reactive airway disease Surgical History Surgical History (Updated 03/18/23 @ 13:53 by José Manuel Santos MD) History of ear surgery Left ear History of partial hysterectomy History of total left knee replacement (01/2023) History of total right knee replacement (08/2022) Family History Family History Mother Diabetes mellitus Social History Social History Social History: Surrogate medical decision maker: Lilli Lindsey, daughter. Code status: Full code. Smoking status: Never smoker Second hand tobacco smoke exposure: No Additional smoking assessment comments: PT DENIES ALL FORMS OF TOBACCO USE Alcohol intake: never Alcohol use details: rarely Substance use: never Substance use type: does not use Lack of Food: Never True Current Housing: Decline to Answer Concerned About Future Housing: Decline to Answer Difficulty Paying Gas/Electric Bills: Decline to Answer Difficulty Paying for Meds: Decline to Answer Currently Unemployed: Decline to Answer Education: Decline to Answer Difficulty w/ Childcare or Family Care: Decline to Answer Living arrangements: alone Additional living arrangements comments: Lives alone in [place]. . Has 2 children. 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 Spiritual care concerns: No Agree to blood products: Yes Anes - Eval Final PreProcedure Day of Procedure 03/25/23 12:35 Patient weight: obese Heart: regular rate and rhythm Lungs: clear to auscultation Airway: Mallampati scale class II Neurological: alert and oriented Last oral intake: >/= 8 hours ASA classification: III Emergent: no Anesthetic plan: proceed Anesthesia type and monitoring: general GIVS and standard monitoring Results Review: All pre-operative results and documents have been reviewed as part of the pre-operative evaluation. Informed Consent: The patient's anesthetic plan and its attendant risks and benefits were discussed with the patient/family/POA. Questions were solicited and answers provided to the satisfaction of the patient/family/POA.
--- NOTE | 2023-03-25 12:50 | PM.HPGS ---
History of Present Illness History of Present Illness Consent: Risks, benefits, and alternatives have been discussed and questions answered. Patient agrees to proceed with procedure. Chief complaint: colon screening Narrative: Sonja Adams is a 57 year old female with last colonoscopy 10 years ago Review of Systems Constitutional: Constitutional: Denies headache(s) and Denies weakness Eyes: Eyes: Denies blurry vision ENT: Reports Normal hearing present, Denies headache(s) and Denies neck pain Cardiovascular: Cardiovascular: Denies chest pain and Denies dyspnea Respiratory: Respiratory: Denies dyspnea Gastrointestinal: Gastrointestinal: Reports no additional gastrointestinal complaints Genitourinary: Genitourinary: Denies dysuria Musculoskeletal: Musculoskeletal: Denies neck pain Integumentary/Breasts: Skin/Breast: Denies dry skin Neurologic: Reports Normal hearing present, Denies headache(s) and Denies weakness Psychiatric: Psychiatric: Denies anxiety Endocrine: Endocrine: Denies change in body appearance Hematologic/Lymphatic: Hematologic/Lymphatic: Denies easy bleeding Allergic/Immunologic: Allergic/Immunologic: Denies urticaria PMFSH Past Medical History Medical History (Updated 03/25/23 @ 12:52 by Rodriguez Moses MD) Colon cancer screening Gastroesophageal reflux disease Hyperlipidemia Nephrolithiasis Obesity Osteoarthritis, knee Reactive airway disease Surgical History Surgical History (Updated 03/18/23 @ 13:53 by José Manuel Santos MD) History of ear surgery Left ear History of partial hysterectomy History of total left knee replacement (01/2023) History of total right knee replacement (08/2022) Family History Family History Mother Diabetes mellitus Social History Social History Social History: Surrogate medical decision maker: Lilli Lindsey, daughter. Code status: Full code. Smoking status: Never smoker Second hand tobacco smoke exposure: No Additional smoking assessment comments: PT DENIES ALL FORMS OF TOBACCO USE Alcohol intake: never Alcohol use details: rarely Substance use: never Substance use type: does not use Lack of Food: Never True Current Housing: Decline to Answer Concerned About Future Housing: Decline to Answer Difficulty Paying Gas/Electric Bills: Decline to Answer Difficulty Paying for Meds: Decline to Answer Currently Unemployed: Decline to Answer Education: Decline to Answer Difficulty w/ Childcare or Family Care: Decline to Answer Living arrangements: alone Additional living arrangements comments: Lives alone in [place]. . Has 2 children. 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 Spiritual care concerns: No Agree to blood products: Yes Meds Home Medications and Allergies Home Medications Medication Instructions Recorded Confirmed Type acetaminophen 650 mg 1,300 mg PO Q12H PRN Pain 08/05/22 03/25/23 History tablet,extended release celecoxib 200 mg capsule (Celebrex) 200 mg PO DAILY #30 caps 03/05/23 03/18/23 Rx zolpidem 10 mg tablet (Ambien) 10 mg PO QHS #10 tabs 03/05/23 03/18/23 Rx omeprazole 20 mg capsule,delayed 20 mg PO PRN PRN Heartburn #90 caps 03/18/23 03/18/23 Rx release Allergies Allergy/AdvReac Type Severity Reaction Status Date / Time No Known Allergies Allergy NONE Verified 03/25/23 10:51 Vital Signs Vital Signs - 24 hr 03/25/23 10:56 Temperature 97.6 F Pulse Rate 88 Respiratory Rate 20 Blood Pressure 114/101 H Exam Const: General: comfortable and no acute distress HENMT: Face/Nose/Sinus: Normal nares present Eyes: General: appearance normal, both eyes and all related structures Neck: Neck: no JVD Resp: Auscultation: clear to a
[2023-03-25 13:17] VITALS: BP 158/85; PULSE 70; RESP 18; O2SAT 99
[2023-03-25 13:27] VITALS: BP 164/96; PULSE 79; RESP 24; O2SAT 100
[2023-03-25 13:37] VITALS: BP 163/106; PULSE 79; RESP 21; O2SAT 100
== END 2023-03-25 13:45 | disposition home or self-care (01) ==
PROVIDERS: PCP Family Medicine Adolescent Medicine; Visit Provider Internal Medicine Gastroenterology
PROC: 0DJD8ZZ Inspection of Lower Intestinal Tract, Via Natural or Artificial Opening Endoscopic (ICD-10-PCS; CPT 45378; principal; 2023-03-25 13:30)
DX: Z12.11 Encounter for screening for malignant neoplasm of colon (principal); Z86.010 Personal history of colon polyps; E78.5 Hyperlipidemia, unspecified; K21.9 Gastro-esophageal reflux disease without esophagitis; E66.9 Obesity, unspecified; Z68.38 Body mass index [BMI] 38.0-38.9, adult
CPT/HCPCS: 45378; J2704; J7120

== ENCOUNTER 2023-09-04 08:02 | Outpatient (CLI) | payer OTHER, SELFPAY ==
--- NOTE | ~2023-09-04 | MM_ITS ---
EXAMINATION: MM screening adriana BI w wilber HISTORY: Screening TECHNIQUE: Craniocaudal and mediolateral oblique 3-D tomosynthesis images were obtained and synthetic 2-D images were generated. CAD analysis was submitted and interpreted. COMPARISON: Comparison to multiple prior studies sequentially, with oldest reviewed study dated 04/22. BREAST PARENCHYMAL COMPOSITION: Not dense: There are scattered areas of fibroglandular density. FINDINGS: There is a developing asymmetry laterally in the left breast on CC view, posterior third. T he right breast is stable without evidence for malignancy. IMPRESSION: 1. Developing left breast asymmetry laterally and posteriorly on CC view. 2. Additional mammographic views and possible breast ultrasound are recommended. BI-RADS Category 0: Incomplete: Needs additional imaging evaluation. Reviewed, dictated and finalized at location B. IMPRESSION: 1. Developing left breast asymmetry laterally and posteriorly on CC view. 2. Additional mammographic views and possible breast ultrasound are recommended . BI-RADS Category 0: Incomplete: Needs additional imaging evaluation.
== END 2023-09-04 08:03 | disposition home or self-care (01) ==
PROVIDERS: PCP Family Medicine Adolescent Medicine; Visit Provider Family Medicine Adolescent Medicine
DX: Z12.31 Encounter for screening mammogram for malignant neoplasm of breast (principal); N64.89 Other specified disorders of breast
CPT/HCPCS: 77063; 77067

== ENCOUNTER 2023-09-26 10:10 | Outpatient (CLI) | payer OTHER, SELFPAY ==
--- NOTE | ~2023-09-26 | MMUS_ITS ---
EXAMINATION: MM diagnostic adriana LT w wilber, US breast LT limited HISTORY: Follow-up left breast asymmetry TECHNIQUE: Additional 3-D tomosynthesis images of the left breast were performed and synthetic 2-D im ages were generated. CAD analysis was submitted and interpreted. High resolution Limited left breast ultrasound was performed. COMPARISON: Comparison to multiple prior studies sequentially, with oldest reviewed study dated 04/22. BREAST PARENCHYMAL COMPOSITION: Not dense: There are scattered areas of fibroglandular density. FINDINGS: MAMMOGRAPHIC FINDINGS: There is a persistent focal asymmetry laterally and posteriorly in the left breast, best seen on spot CC view. There are no suspicious calcifications. No discrete mass. ULTRASOUND: Limited left breast ultrasound: At 2:00, 9 cm from the nipple there is an irregular shaped partially cystic hypoechoic mass measuring 8 x 6 x 3 mm with irregular margins, no posterior features and no in ternal vascularity. IMPRESSION: 1. Complex partially cystic 8 mm left breast mass at 2:00, 9 cm from the nipple. This may correspond to the mammographic asymmetry. 2. Ultrasound-guided left breast biopsy recommended. BI-RADS category 4, suspicious findings. Reviewed, dictated and finalized at location B. IMPRESSION: 1. Complex partially cystic 8 mm left breast mass at 2:00, 9 cm from the nipple . This may correspond to the mammographic asymmetry. 2. Ultrasound-guided left breast biopsy recommended. BI-RADS category 4, suspicious findings.
== END 2023-09-26 10:11 | disposition home or self-care (01) ==
LOC: ANHIMG 10:11
PROVIDERS: PCP Family Medicine Adolescent Medicine; Visit Provider Family Medicine Adolescent Medicine
DX: N63.21 Unspecified lump in the left breast, upper outer quadrant (principal)
CPT/HCPCS: 76642; 77061; 77065; G0279

== ENCOUNTER 2023-11-05 07:38 | Outpatient (CLI) | payer OTHER, SELFPAY ==
--- NOTE | ~2023-11-05 | MMUS_ITS ---
MM post biopsy diagnostic LT, US breast biopsy LT w image EXAMINATION: US GUIDED NEEDLE BIOPSY WITH VACUUM ASSISTANCE DATE: 11/05/2023 09:29 CDT INDICATION: Left breast mass seen on prior examination. Ultrasound-guided core biopsy is requested t o evaluate for malignancy. BREAST PARENCHYMAL COMPOSITION: Not dense: There are scattered areas of fibroglandular density. TECHNIQUE AND FINDINGS: The risks and potential benefits of the procedure were discussed with the patient, and written inform ed consent was obtained. After sterile preparation of the left breast, 1% lidocaine was utilized for local anesthesia. 1% lidocaine with epinephrine was used for deep anesthesia. A 10G vacuum-assisted biopsy gun needle was advanced through to the outer edge of the region of inter est from a lateral approach utilizing sonographic guidance. A total of 4 tissue core samples were ob tained through the lesion. An Inrad tissue marker clip was then placed at the biopsy site. Hemostasi s was achieved. The patient tolerated procedure well and there was no evidence of immediate complication. The patien t was given verbal instructions partly is from the department. Left breast mammograms to document ti ssue marker clip placement. The tissue samples were submitted to surgical pathology for histologic an alysis. IMPRESSION: 1. Successful ultrasound-guided vacuum-assisted biopsy of left breast mass with post procedure mammo gram for marker placement. Please refer to pathology report for histologic analysis. Reviewed, dictated and finalized at location B. IMPRESSION: 1. Successful ultrasound-guided vacuum-assisted biopsy of left breast mass wit h post procedure mammogram for marker placement. Please refer to pathology repo rt for histologic analysis.
== END 2023-11-05 07:39 | disposition home or self-care (01) ==
PROVIDERS: PCP Family Medicine Adolescent Medicine; Visit Provider Family Medicine Adolescent Medicine
DX: N63.21 Unspecified lump in the left breast, upper outer quadrant (principal)
CPT/HCPCS: 19083; 77065; 88305; A4648

== ENCOUNTER 2024-03-29 09:21 | Emergency (ER) | payer OTHER, SELFPAY ==
--- NOTE | ~2024-03-29 | XR_ITS ---
EXAMINATION: XR knee RT 3V DATE: 03/29/2024 10:13 INDICATION: Right knee injury. TECHNIQUE: 4 views of right knee were obtained. COMPARISON: Right knee radiographs 09/30/2022 FINDINGS: There is a total right knee arthroplasty with patellar resurfacing in near-anatomic alignme nt. No fracture. No periprosthetic lucency to suggest loosening or infection. There is a small knee j oint effusion. IMPRESSION: 1. Total right knee arthroplasty in near-anatomic alignment. 2. Small right knee joint effusion. Reviewed, dictated and finalized at location A. CLEARANCE FOREMAN
[2024-03-29 09:35] VITALS: BP 147/112; PULSE 89; RESP 20; TEMP 36.4; O2SAT 97
--- NOTE | 2024-03-29 10:07 | ED.LOWEXIN ---
HPI - Extremity Injury (Lower) General Chief Complaint: Extremity Injury, Lower Stated Complaint: R knee pain, fell yesterday Time Seen by Provider: 03/29/24 09:34 History of Present Illness HPI Narrative: Patient is a 58-year-old female who presents ER with right knee pain. Fell down some steps yesterday and her right heel touched her buttock. States she does not stretch that way in a long time. She has pain over her anterior knee superiorly. She is able to walk and is using a crutch. No numbness or tingling. She did not strike her head or lose consciousness. Related Data Home Medications ?Medication ?Instructions ?Recorded ?Confirmed ?Last Taken ?Type acetaminophen 650 mg 1,300 mg PO Q12H PRN Pain 08/05/22 05/14/23 03/24/23 History tablet,extended release Allergies Allergy/AdvReac Type Severity Reaction Status Date / Time No Known Allergies Allergy NONE Verified 03/29/24 09:42 Review of Systems Constitutional: Constitutional: Reports no additional constitutional complaints Musculoskeletal: Musculoskeletal: Reports no additional musculoskeletal complaints Neurologic: Reports system reviewed and no additional complaints, except as documented [facility] Past Medical History Medical History Colon cancer screening Gastroesophageal reflux disease Hyperlipidemia Nephrolithiasis Obesity Osteoarthritis, knee Reactive airway disease Surgical History Surgical History History of ear surgery Left ear History of partial hysterectomy History of total left knee replacement (01/2023) History of total right knee replacement (08/2022) Family History Family History Mother Diabetes mellitus Social History Social History Social History: Surrogate medical decision maker: Lilli Lindsey, daughter. Code status: Full code. Smoking status: Never smoker Second hand tobacco smoke exposure: No Additional smoking assessment comments: PT DENIES ALL FORMS OF TOBACCO USE Alcohol intake: never Alcohol use details: rarely Substance use: never Substance use type: does not use Lack of Food: Never True Current Housing: Decline to Answer Concerned About Future Housing: Decline to Answer Difficulty Paying Gas/Electric Bills: Decline to Answer Difficulty Paying for Meds: Decline to Answer Currently Unemployed: Decline to Answer Education: Decline to Answer Difficulty w/ Childcare or Family Care: Decline to Answer Living arrangements: alone Additional living arrangements comments: Lives alone in [place]. . Has 2 children. 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 HEAD: Normocephalic, atraumatic. EXTREMITIES: Normal range of motion. No edema. Surgical scar right anterior knee. Mild discomfort over the quadriceps of the right thigh. SKIN: Warm, dry, no rash. NEURO: Alert and oriented x3. PSYCH: Normal mood and affect. Course Course Emergency Course: Imaging negative. Suspect quad strain in recommend anti-inflammatories and RICE. Destrehan x1 here. Vital Signs Vital signs: Vital Signs Temperature 97.6 F 03/29/24 09:35 Pulse Rate 89 03/29/24 09:35 Respiratory Rate 20 03/29/24 09:35 Blood Pressure 147/112 H 03/29/24 09:35 Pulse Oximetry 97 03/29/24 09:35 Oxygen Delivery Room Air 03/29/24 09:35 Temperature 97.6 F 03/29/24 09:35 Pulse Rate 89 03/29/24 09:35 Respiratory Rate 20 03/29/24 09:35 Blood Pressure 147/112 H 03/29/24 09:35 Pulse Oximetry 97 03/29/24 09:35 Oxygen Delivery Room Air 03/29/24 09:35 MDM - Extremity Injury (Lower) Imaging Data Radiologist's impression: ITS Impressions Knee X-Ray 03/29/24 10:14 IMPRESSION: 1. Total right knee arthroplasty in near-anatomic alignment. 2. Small right knee joint effusion. Discharge Plan Discharge Clinical Impression: Quadriceps strain Patient Disposition: Home, Self-Care Condition: Stable Instructions: Muscle Strain (ED), P.R.I.C.E. Treatment (ED) Additional Instructions: Return ER if you have fever 100.4? F, he can not keep down food water, you lose consciousness, have additional concerns. Patient Language: Norwegian Prescriptions: New naproxen 375 mg tablet 375 mg PO BID Qty: 14 0RF No Action celecoxib [Celebrex] 200 mg capsule 200 mg PO DAILY Qty: 14 0RF baclofen 10 mg tablet 10 mg PO TID PRN (Reason: muscle spasm) Qty: 30 0RF Patient Comments: TAKES PRN tramadol 50 mg tablet 50 mg PO Q6H PRN (Reason: pain) Qty: 20 0RF acetaminophen 650 mg Tablet Extended Release 1,300 mg PO Q12H PRN (Reason: Pain) atorvastatin 10 mg tablet 10 mg PO DAILY Qty: 90 1RF Patient Comments: PT STATES WAS TOLD TO STOP PER DR. FOLR PRIOR TO RT TKA 08/21/22 & HAS NOT STARTED BACK ON IT famotidine 20 mg tablet 20 mg PO DAILY Qty: 90 0RF furosemide 20 mg tablet 20 mg PO QAM PRN (Reason: edema) Qty: 30 7RF oseltamivir [Tamiflu] 75 mg capsule 75 mg PO BID 5 Days Qty: 10 0RF Follow-up/Referrals: Greg Vargas MD [Primary Care Provider] - 1 Week
[2024-03-29] MEDS: HYDROcodone/acetaminophen (*CRX) 5-325 MG TABLET 1 TAB PO (11:49)
--- OUTSIDE RECORDS SUMMARY | 2024-03-29 12:03 | XMS_ITS | Clinical Summary ---
Author Organization [facility] Address [facility] [place] [address] Care Team Providers Care Chinese Instructor Name Role Phone Greg Vargas MD Primary Care Provider +1- [phone] Allergies No known active allergies Medications No known medications Social History Tobacco Use Types Packs/Day Years Used Date Smoking Tobacco: Never Assessed Comments Unknown Sex and Gender Information Value Date Recorded Sex Assigned at Not on file Legal Sex Female 6:07 PM CDT Gender Identity Not on file Sexual Orientation Not on file Last Filed Vital Signs Vital Sign Reading Time Taken Comments Blood Pressure 150/66 04/22/2022 3:00 PM CDT Pulse 77 04/22/2022 3:00 PM CDT Temperature 36.7 C (98 F) 04/22/2022 3:00 PM CDT Respiratory Rate 20 04/22/2022 3:00 PM CDT Oxygen Saturation 99% 04/22/2022 3:00 PM CDT Inhaled Oxygen Concentration - - Weight 111.1 kg (245 lb) 04/22/2022 2:32 PM CDT Height 167.6 cm (5' 6 ) 04/22/2022 2:23 PM CDT Body Mass Index 39.54 04/22/2022 2:23 PM CDT Plan of Treatment Health Maintenance Due Date Last Done Comments Cervical Cancer Screening Pa p Smear (Age 30 to 64) Every 3 Years 1963 Colorectal Cancer Screening Colonoscopy (10 Years) 1963 Annual Physical 12/15/1966 Hepatitis C 12/15/1981 DTaP, Tdap and Td Vaccines ( 1 - Tdap) 12/15/1982 Cervical Cancer Screening Pa p with HPV Testing (Age 30 to 64) Every 5 Years 12/15/1993 Cervical Cancer Screening with HPV 12/15/1993 Mammogram Screening 2003 Zoster Vaccines (1 of 2) 12/15/2013 COVID-19 Vaccine (2023-2 5 season) 2023 Influenza Adult (#1) 2023 RSV Immunization or 60+ Years (1 - 1-dose 75+ series) 12/15/2038 Meningococcal B Vaccine Aged Out No l onger eligible based on patient's age to complete this topic Meningococcal Vaccine Aged Out No mendel shamika eligible based on patient's age to complete this topic Pneumococcal Vaccine: Pediat rics (0 to 5 Years) and At-Risk Patients (6 to 64 Years) Aged Out No longer eligible b ased on patient's age to complete this topic RSV Immunizations Under 20 Months Aged Out No longer eligible based on patient's age to complete this topic Insurance [employer] Care Teams Chinese Instructor Relationship Specialty Start Date End Date Greg Vargas MD [address] [address] PCP - General FAMILY PRACTICE 04/22/22
--- OUTSIDE RECORDS SUMMARY | 2024-03-29 13:12 | XMS_ITS | Clinical Summary ---
Author Organization [facility] Address [facility] [place] [address] Care Team Providers Care Mucker Operator Name Role Phone Greg Vargas MD Primary Care Provider [phone]- [phone] Allergies No known active allergies Medications No [...] patient's age to complete this topic Insurance [employer] Care Teams Mucker Operator Relationship Specialty Start Date End Date Greg Vargas MD [phone] [address] PCP - General FAMILY PRACTICE 04/22/22
== END 2024-03-29 11:51 | disposition home or self-care (01) ==
PROVIDERS: Emergency Provider Emergency Medicine; PCP Family Medicine Adolescent Medicine
DX: S76.111A Strain of right quadriceps muscle, fascia and tendon, initial encounter (principal); K21.9 Gastro-esophageal reflux disease without esophagitis; E78.5 Hyperlipidemia, unspecified; J45.909 Unspecified asthma, uncomplicated; M17.10 Unilateral primary osteoarthritis, unspecified knee; W10.9XXA Fall (on) (from) unspecified stairs and steps, initial encounter
CPT/HCPCS: 73562; 99283; A9270

== ENCOUNTER 2024-12-03 16:21 | Outpatient (CLI) | payer OTHER, SELFPAY ==
[2024-12-03 17:54] LABS: Alanine Aminotransferase 38 U/L (6-35); Albumin Level 4.3 g/dL (3.5-5.1); Alkaline Phosphatase 84 U/L (38-126); Anion Gap 9 mmol/L (4-12); Aspartate Amino Transferase 32 U/L (14-36); Bilirubin,Total 0.4 mg/dL (0.2-1.3); Blood Urea Nitrogen 21 mg/dL (7-17); Calcium 9.3 mg/dL (8.4-10.2); Carbon Dioxide 26 mmol/L (22-30); Chloride 106 mmol/L (98-107); Cholesterol 204 mg/dL (0-200); Estimated Glomerular Filt Rate > 60; Glucose 117 mg/dL (65-110); HDL Direct 42 mg/dL; Potassium 4.0 mmol/L (3.4-5.0); Sodium 141 mmol/L (137-145); Total Protein 7.7 g/dL (6.3-8.2); Triglycerides 208 mg/dL (<150)
== END 2024-12-03 16:22 | disposition home or self-care (01) ==
LOC: ANHLAB 16:24
PROVIDERS: PCP Family Medicine Adolescent Medicine; Visit Provider Family Medicine Adolescent Medicine
DX: E78.5 Hyperlipidemia, unspecified (principal)
CPT/HCPCS: 36415; 80053; 80061

== ENCOUNTER 2025-01-27 13:41 | Outpatient (CLI) | payer OTHER, SELFPAY ==
--- NOTE | ~2025-01-27 | XR_ITS ---
EXAMINATION: XR foot LT min 3V, 01/27/2025 13:43 FORM GRADER OPERATOR HISTORY: M79.672 - Pain in left foot, lateral heel pain COMPARISON: No comparisons available. Findings: No acute fracture or malalignment. Small calcaneal spur Soft tissues unremarkable. Impression: No acute fracture or malalignment. Reviewed, dictated and finalized at location P. GRADER OPERATOR Impression: No acute fracture or malalignment.
--- OUTSIDE RECORDS SUMMARY | 2025-01-27 14:40 | XMS_ITS | Clinical Summary ---
Author Organization [facility] Address [facility] [place] [address] Care Team Providers Care Living Advisor Name Role Phone Greg Vargas MD Primary Care Provider +1- [phone] Allergies No known active allergies Medications No [...] 2:32 PM CDT Height 167.6 cm (5' 6) 04/22/2022 2:23 PM CDT Body Mass Index [...] Screening with HPV 12/15/1993 Mammogram Screening 2003 Pneumococcal Vaccine: 50+ Ye ars (1 of 1 - PCV) 12/15/2013 Zoster Vaccines (1 of 2) 12/15/2013 COVID-19 Vaccine (1 - 2024-2 6 season) 2024 Influenza Adult (#1) 2024 RSV Immunization or 60+ Years (1 - 1-dose 75+ series) 12/15/2038 Hepatitis A Vaccines Aged Out No long er eligible based on patient's age to complete this topic Meningococcal B Vaccine Aged Out No l onger eligible based on patient's age to complete this topic Meningococcal Vaccine Aged Out No mendel shamika eligible based on patient's age to complete this topic RSV Immunizations Under 20 Months Aged Out No longer eligible based on patient's age to complete this topic Insurance [employer] Care Teams Living Advisor Relationship Specialty Start Date End Date Greg Vargas MD [address] [address] PCP - General FAMILY PRACTICE 04/22/22
== END 2025-01-27 13:42 | disposition home or self-care (01) ==
PROVIDERS: PCP Family Medicine; Visit Provider Family Medicine
DX: M79.672 Pain in left foot (principal)
CPT/HCPCS: 73630